=== PATIENT | female | born 1935 | race Caucasian/White ===

== ENCOUNTER 2016-10-31 11:45 | Emergency (ER) | payer MEDICARE, OTHER ==
[~2016-10-31] VITALS: Ht 152.4 cm; Wt 72.0 kg
[~2016-10-31 11:45] MED LIST: CLIN1CAP6 PO; FURO1TAB93 PO; KLOR8TAB PO; LORT5TAB PO; OS-CTAB3 PO; TAB-TAB PO; TYLE3 PO
[2016-10-31 11:47] VITALS: BP 145/94; PULSE 95; RESP 17; TEMP 97.8; O2SAT 95
--- NOTE | 2016-10-31 12:06 | PD ---
Physical Exam Date Seen by Provider: Oct 31, 2016 Time Seen by Provider: 11:59 Narrative 81 y/o female patient here with 1 week history of lower abdominal and lower back pain. patient denies fever, nausea, or vomiting. Patient was constipated , but has been taking Senokot with good results. No history diverticulitis. V/S stable. Patient awaiting bed placement. Data Data Last Documented VS Vital Signs Date Time Temp Pulse Resp B/P Pulse Ox O2 Delivery O2 Flow Rate FiO2 10/31/16 11:47 97.8 95 17 145/94 95 MDM Medical Record Reviewed: Yes Supervised Visit with ROBBIE: Yes Condition: Stable Reilly Garland Oct 31, 2016 12:06
[2016-10-31] MEDS ORDERED: ONDANSETRON HCL 4 MG/2 ML VIAL IM ONE (13:45)
[2016-10-31] MEDS ORDERED: MORPHINE SULFATE 4 MG/ML INJ IM ONE (13:45)
--- NOTE | 2016-10-31 13:50 | PD ---
HPI Chief Complaint: Abdominal Pain Time Seen by Provider: 13:13 Travel History International Travel<30 days: No Contact w/Intl Traveler<30days: No Traveled to known affect area: No History of Present Illness HPI This patient complains of back pain. Duration is one week. Severity is moderate. It basically flares whenever she moves. If she tries to sit up or twist her torso she gets a lot of pain. It's in the low midline back. It does not radiate down her legs. She is not having vomiting or diarrhea or fever. She is eating well. No presyncopal symptoms. She saw her primary physician for this a few days ago, Dr. Harris. [facility] Past Medical History Diabetes: No Hepatitis: No Hiatal Hernia: No Past Surgical History Abdominal Surgery: Yes (CHOLECYSTECTOMY) Cardiac Surgery: No Endocrine Surgery: No Eye Surgery: Yes (CATARCT BILATERAL WITH LENS REPLACEMENT) Pacemaker: No Thoracic Surgery: No Social History Alcohol Use: No Tobacco Use: No Substance Use: No Allergies-Medications (Allergen,Severity, Reaction): Coded Allergies: Actonel (Unverified Allergy, Severe, Rash, 10/31/16) Keflex (Unverified Allergy, Mild, EYES NOT OPENING, 10/31/16) Reported Meds & Prescriptions Reported Meds & Active Scripts Active Lortab 5/500 (Acetaminophen/Hydrocodone Bitart) 5 Mg/500 Mg Tab 1 Tab PO Q6HPRN FOR PAIN Reported Clindamycin Hcl (Clindamycin HCl) 300 Mg Cap 300 Mg PO DAILY Tylenol #3 (Acetaminophen/Codeine Phosphate) 300 Mg/30 Mg Tab 1 Tab PO Q4-6HPRN FOR PAIN Klor-Con 8 (Potassium Chloride) 8 Meq Tab 8 Meq PO 3XWEEKLY Multivitamin (Multivitamins) 1 Tab Tab 1 Tab PO WEEKLY Lasix (Furosemide) 40 Mg Tab 40 Mg PO BID Calcium 500/Vitamin D (Calcium/Vitamin D) Tab 600 Mg PO DAILY Review of Systems General / Constitutional: No: Fever Eyes: No: Visual changes HENT: No: Headaches Cardiovascular: No: Chest Pain or Discomfort Respiratory: No: Shortness of Breath Gastrointestinal: Positive: Abdominal Pain, No: Vomiting Genitourinary: No: Dysuria Musculoskeletal: Positive: Pain Skin: No Rash Neurologic: No: Weakness Psychiatric: No: Depression Endocrine: No: Polydipsia Hematologic/Lymphatic: No: Easy Bruising Physical Exam Narrative GENERAL: Well-nourished, well-developed patient in no apparent distress. SKIN: Focused skin assessment reveals no rash and nodules. Skin is Warm and dry. HEAD: Atraumatic. Normocephalic. EYES: Pupils equal and round. No scleral icterus. No injection or drainage. ENT: No nasal bleeding or discharge. Mucous membranes pink and moist. NECK: Trachea midline. No JVD. CARDIOVASCULAR: Regular rate and rhythm. No murmur appreciated. RESPIRATORY: No accessory muscle use. Clear to auscultation. Breath sounds equal bilaterally. GASTROINTESTINAL: Abdomen soft, non-tender, nondistended. Hepatic and splenic margins not palpable. MUSCULOSKELETAL: No obvious deformities. No clubbing. No cyanosis. No edema. Examination the back reveals no midline tenderness. No bruising or swelling or muscle spasm. Straight leg raise and cross straight leg raises are negative NEUROLOGICAL: Awake and alert. No obvious cranial nerve deficits. Motor grossly within normal limits. Normal speech. PSYCHIATRIC: Appropriate mood and affect; insight and judgment normal. Data Data Last Documented VS Vital Signs Date Time Temp Pulse Resp B/P Pulse Ox O2 Delivery O2 Flow Rate FiO2 10/31/16 11:47 97.8 95 17 145/94 95 Orders Morphine Inj (Morphine Inj) (10/31/16 13:45) Ondansetron Inj (Zofran Inj) (10/31/16 13:45) MDM Medical Decision Making Medical Screen Exam Complete: Yes Emergency Medical Condition: Yes Medical Record Reviewed: Yes Differential Diagnosis Compression fracture, disc herniation, sciatica, AAA Narrative Course I have reviewed the patient's electronic medical record. I called and spoke with Dr. Harris. We discussed her case in detail. He did an abdominal ultrasound which revealed no evidence of AAA. There was some calcifications in the aorta. He did a x-ray of the lumbosacral spine.. No compression fractures. Patient is neurologically intact. She does not have sciatic radiation. Her low back pain clearly seems musculoskeletal. It is clearly flared and aggravated when she tries to sit up or roll over or move her back. She has a soft benign nontender abdomen. I don't feel that the cause of her back pain is abdominal in nature I'm giving her morphine and Zofran injection now for symptom relief. I wrote her some Percocets. Dr. Harris will see her tomorrow in his office and will consider doing an outpatient MRI of the lumbosacral spine. He has already referred her to orthopedics. Diagnosis Primary Impression: Back pain at L4-L5 level Additional Instructions: The patient was warned about potential sedation for the medications they will receive on prescription. Call primary physician tomorrow morning for follow-up, he will see her tomorrow Med/Other Pt SpecificInfo: Prescription(s) given Disposition: 01 DISCHARGE HOME Condition: Stable Bony Dunn MD Oct 31, 2016 13:50
[2016-10-31] MEDS ORDERED: PERC5TAB12 PO (14:33)
[2016-10-31 14:51] VITALS: RESP 14
[2016-10-31 14:54] VITALS: BP 135/70
== END 2016-10-31 15:05 | disposition home or self-care (01) ==
LOC: NEPC 11:45
DX: M54.5 Low back pain (principal)
CPT/HCPCS: 96372; 99283; J2270; J2405

== ENCOUNTER 2016-11-18 11:59 | Inpatient (IN) | payer OTHER, MEDICARE ==
[~2016-11-18] VITALS: Ht 152.4 cm; Wt 67.9 kg
[~2016-11-18 11:59] MED LIST changes: +PERC5TAB12 PO
[2016-11-18 12:04] VITALS: BP 154/86; PULSE 92; RESP 18; TEMP 98.6; O2SAT 96
--- NOTE | 2016-11-18 12:08 | PD ---
Physical Exam Time Seen by Provider: 12:05 Narrative 81yo F c/o low back pain and lower abdominal pain x1 month. Denies Injury. Ovidio fever, vomiting, diarrhea. Patient seen in triage. Awaiting bed placement. VS reviewed. Data Data Last Documented VS Vital Signs Date Time Temp Pulse Resp B/P Pulse Ox O2 Delivery O2 Flow Rate FiO2 11/18/16 12:04 98.6 92 18 154/86 96 MDM Supervised Visit with ROBBIE: Laney Dillon November 18, 2016 12:08
[2016-11-18] MEDS ORDERED: FURO1TAB60 PO (12:45)
[2016-11-18] MEDS ORDERED: KLOR8TAB PO (12:45)
--- NOTE | 2016-11-18 13:08 | PD ---
HPI Chief Complaint: Abdominal Pain Time Seen by Provider: 12:42 Travel History International Travel<30 days: No Contact w/Intl Traveler<30days: No Traveled to known affect area: No History of Present Illness HPI This patient has history of chronic low back pain and chronic left lower quadrant pain. She's had each of these problems for one to 2 months. She's had fairly extensive workup including abdominal ultrasound and MRI of her back and plain films. She is seen orthopedic follow-up as well as her regular doctor for this multiple times. She received a call today from orthopedist Dr. Horton who according to the patient told her to go to the emergency room. The patient really doesn't know why she was sent here and she says she didn't ask him. Pain is chronic and not unchanged today. No acute injury. No new neurologic deficit. I placed a call to Dr. Horton to discuss. I suspect it may have to do with her recent outpatient MRI. Severity is moderate. Duration 1-2 months. No alleviating factors PFSH Past Medical History Cardiovascular Problems: Yes (MITRAL VALVE) Diabetes: No Hepatitis: No Hiatal Hernia: No Hypertension: Yes Medical other: No Respiratory: No ?: Not Past Surgical History Abdominal Surgery: Yes (CHOLECYSTECTOMY) Cardiac Surgery: No Endocrine Surgery: No Eye Surgery: Yes (CATARCT BILATERAL WITH LENS REPLACEMENT) Neurologic Surgery: No Pacemaker: No Thoracic Surgery: No Other Surgery: Yes Social History Alcohol Use: No Tobacco Use: No (quit 30 years ago) Substance Use: No Allergies-Medications (Allergen,Severity, Reaction): Coded Allergies: Actonel (Verified Allergy, Severe, Rash, 10/31/16) Keflex (Verified Allergy, Mild, EYES NOT OPENING, 10/31/16) Reported Meds & Prescriptions Reported Meds & Active Scripts Active Percocet (Oxycodone-Acetaminophen) 5-325 mg Tab 1 Tab PO Q6H PRN Reported Lasix (Furosemide) 40 Mg Tab 40 Mg PO DAILY Klor-Con 8 (Potassium Chloride) 8 Meq Tab 8 Meq PO DAILY Review of Systems General / Constitutional: No: Fever Eyes: No: Visual changes HENT: No: Headaches Cardiovascular: No: Chest Pain or Discomfort Respiratory: No: Shortness of Breath Gastrointestinal: Positive: Abdominal Pain Genitourinary: No: Dysuria Musculoskeletal: Positive: Pain Skin: No Rash Neurologic: No: Weakness Psychiatric: No: Depression Endocrine: No: Polydipsia Hematologic/Lymphatic: No: Easy Bruising Physical Exam Narrative GENERAL: Elderly well-developed patient in no apparent distress. SKIN: Focused skin assessment reveals no rash and nodules. Skin is Warm and dry. HEAD: Atraumatic. Normocephalic. EYES: Pupils equal and round. No scleral icterus. No injection or drainage. ENT: No nasal bleeding or discharge. Mucous membranes pink and moist. NECK: Trachea midline. No JVD. CARDIOVASCULAR: Regular rate and rhythm. No murmur appreciated. RESPIRATORY: No accessory muscle use. Clear to auscultation. Breath sounds equal bilaterally. GASTROINTESTINAL: Abdomen soft, nontender without rebound or guarding, nondistended. Hepatic and splenic margins not palpable. MUSCULOSKELETAL: No obvious deformities. No clubbing. No cyanosis. No edema. NEUROLOGICAL: Awake and alert. No obvious cranial nerve deficits. Motor grossly within normal limits. Normal speech. PSYCHIATRIC: Appropriate mood and affect; insight and judgment normal. Data Data Last Documented VS Vital Signs Date Time Temp Pulse Resp B/P Pulse Ox O2 Delivery O2 Flow Rate FiO2 11/18/16 12:25 18 11/18/16 12:04 98.6 92 154/86 96 Orders Iv Access Insert/Monitor (11/18/16 13:36) Complete Blood Count With Diff (11/18/16 13:36) Basic Metabolic Panel (Bmp) (11/18/16 13:36) Prothrombin Time / Inr (Pt) (11/18/16 13:36) Act Partial Throm Time (Ptt) (11/18/16 13:36) C-Reactive Protein (Crp) (11/18/16 13:44) Westergren Sedimentation Rate (11/18/16 13:44) Ct Guided Aspiration (11/18/16 ) Labs Laboratory Tests Test 11/18/16 11/18/16 13:40 13:46 White Blood Count 6.5 TH/MM3 Red Blood Count 4.28 MIL/MM3 Hemoglobin 11.8 GM/DL Hematocrit 36.4 % Mean Corpuscular Volume 85.2 FL Mean Corpuscular Hemoglobin 27.5 PG Mean Corpuscular Hemoglobin 32.3 % Concent Red Cell Distribution Width 15.3 % Platelet Count 222 TH/MM3 Mean Platelet Volume 7.9 FL Neutrophils (%) (Auto) 73.0 % Lymphocytes (%) (Auto) 18.2 % Monocytes (%) (Auto) 6.2 % Eosinophils (%) (Auto) 1.8 % Basophils (%) (Auto) 0.8 % Neutrophils # (Auto) 4.8 TH/MM3 Lymphocytes # (Auto) 1.2 TH/MM3 Monocytes # (Auto) 0.4 TH/MM3 Eosinophils # (Auto) 0.1 TH/MM3 Basophils # (Auto) 0.0 TH/MM3 CBC Comment DIFF FINAL Differential Comment Sodium Level 140 MEQ/L Potassium Level 4.2 MEQ/L Chloride Level 105 MEQ/L Carbon Dioxide Level 26.8 MEQ/L Anion Gap 8 MEQ/L Blood Urea Nitrogen 15 MG/DL Creatinine 0.67 MG/DL Estimat Glomerular Filtration 84 ML/MIN Rate Random Glucose 93 MG/DL Calcium Level 9.6 MG/DL Prothrombin Time 11.1 SEC Prothromb Time International 1.0 RATIO Ratio Activated Partial 26.1 SEC Thromboplast Time MDM Medical Decision Making Medical Screen Exam Complete: Yes Emergency Medical Condition: Yes Medical Record Reviewed: Yes Differential Diagnosis Sciatica, disc herniation, chronic pain Narrative Course I have reviewed the patient's electronic medical record. Reviewed her visit from October 2016 when I saw this patient for the exact same thing I'm awaiting a callback from Dr. Horton. He advised this patient to come here. I discussed the case in detail with Dr. Horton. He did an outpatient MRI which has revealed suspicion of discitis. He discussed with neurosurgeon Dr. Judge who has reviewed the MRI. They're recommending admission and Dr. Judge is arranging a CT-guided aspiration of the disc in question. I spoke with Dr. Judge as well. He recommends holding off on antibiotics but recommends that hospitalist consult ID as well as himself. CBC is normal Metabolic profile is normal CRP and sedimentation rate are pending Patient will be admitted for discitis with CT-guided biopsy soon to be followed by antibiotics. Diagnosis Primary Impression: Discitis of lumbar region Admitting Information Admitting Physician Requests: Admit Bony Dunn MD November 18, 2016 13:08
--- NOTE | 2016-11-18 13:55 | PD.CONS ---
[facility] Service Neurosurgery Consult Requested By Dr Sanchez Reason for Consult Discitis at L3-L4 Primary Care Physician Roseanna Harris MD History of Present Illness This is a 81 y/o Female with chronic low back pain and chronic left lower quadrant pain. Apparently her pain has been getting worse for the past two months, She's had fairly extensive workup including abdominal ultrasound and MRI of her back and plain films. She was sent to [place] emergency department by her orthopedic surgeon after an MRI which reported evidence of discitis at L3-L4 . Her pain is very severe and aggravated by any movement she denies any gurjit focal weakness. No acute injury. No falls she denies any incontinence of stool or urine or gurjit sensory loss. She has suffer a recent urinary tract infection. She has history of Mitral valve disease. An outpatient MRI has been obtained. Neurosurgical consultation was requested Review of Systems Constitutional: DENIES: Diaphoretic episodes, Fatigue, Fever, Weight gain, Weight loss, Chills, Dizziness, Change in appetite, Night Sweats Endocrine: DENIES: Abnorml menstrual pattern, Heat/cold intolerance, Polydipsia , Polyuria, Polyphagia Eyes: COMPLAINS OF: Eye inflammation, DENIES: Blurred vision, Diplopia, Eye pain, Vision loss, Photosensitivity, Double Vision Ears, nose, mouth, throat: DENIES: Tinnitus, Hearing loss, Vertigo, Nasal discharge, Oral lesions, Throat pain, Hoarseness, Ear Pain, Running Nose, Epistaxis, Sinus Pain, Toothache, Odynophagia Respiratory: DENIES: Apneas, Cough, Snoring, Wheezing, Hemoptysis, Sputum production, Shortness of breath Cardiovascular: DENIES: Chest pain, Palpitations, Syncope, Dyspnea on Exertion , PND, Lower Extremity Edema, Orthopnea, Claudication Gastrointestinal: DENIES: Abdominal pain, Black stools, Bloody stools, Constipation, Diarrhea, Nausea, Vomiting, Difficulty Swallowing, Anorexia Genitourinary: DENIES: Abnormal vaginal bleeding, Dysmenorrhea, Dyspareunia, Sexual dysfunction, Urinary frequency, Urinary incontinence, Urgency, Hematuria , Dysuria, Nocturia, Vaginal discharge Musculoskeletal: COMPLAINS OF: Joint pain, Back pain Integumentary: DENIES: Abnormal pigmentation, Pruritus, Rash, Nail changes, Breast masses, Breast skin changes, Nipple discharge Hematologic/lymphatic: DENIES: Bruising, Lymphadenopathy Immunologic/allergic: DENIES: Eczema, Urticaria Neurologic: COMPLAINS OF: Abnormal gait, DENIES: Headache, Localized weakness , Paresthesias, Seizures, Speech Problems, Tremor, Poor Balance Psychiatric: DENIES: Anxiety, Confusion, Mood changes, Depression, Hallucinations, Agitation, Suicidal Ideation, Homicidal Ideation, Delusions Past Family Social History Allergies: Coded Allergies: Actonel (Verified Allergy, Severe, Rash, 10/31/16) Keflex (Verified Allergy, Mild, EYES NOT OPENING, 10/31/16) Past Medical History Mitral Valve disease Urinary tract infection Hypertension Possible dementia Past Surgical History Cholecystectomy Cataract bilateral with lens replacement Reported Medications Percocet (Oxycodone-Acetaminophen) 5-325 mg Tab 1 Tab PO Q6H PRN Lasix (Furosemide) 40 Mg Tab 40 Mg PO DAILY Klor-Con 8 (Potassium Chloride) 8 Meq Tab 8 Meq PO DAILY Active Ordered Medications Current Medications Furosemide (Lasix) 40 mg DAILY PO ; Start 11/19/16 at 09:00 Potassium Chloride 8 meq 8 meq DAILY PO ; Start 11/19/16 at 09:00 Sodium Chloride (NS 1000 ml Inj) 1,000 ml @ 100 mls/hr Q10H IV Last administered on 11/18/16t 15:00; Start 11/18/16 at 15:00 Sodium Chloride (NS Flush) 2 ml UNSCH PRN IV FLUSH FLUSH AFTER USING IV ACCESS ; Start 11/18/16 at 15:00 Sodium Chloride (NS Flush) 2 ml BID IV FLUSH ; Start 11/18/16 at 21:00 Acetaminophen (Tylenol) 650 mg Q4H PRN PO TEMP > 100.4; Start 11/18/16 at 15:00 Ondansetron HCl (Zofran Inj) 4 mg Q6H PRN IVP NAUSEA OR VOMITING; Start at 15:00 Bisacodyl (Dulcolax Supp) 10 mg DAILY PRN RECTAL CONSTIPATION; Start 11/18/16 at 15:00 Docusate Sodium (Colace) 100 mg Q12HR PO ; Start 11/18/16 at 15:00 Naloxone HCl (Narcan Inj) 0.4 mg UNSCH PRN IV SEE LABEL COMMENTS; Start at 15:00 Family History Noncontributory Social History She is not a smoker. Denies alcohol abuse. Denies illicit drug use Physical Exam Vital Signs Vital Signs Date Time Temp Pulse Resp B/P Pulse Ox O2 Delivery O2 Flow Rate FiO2 11/18/16 12:25 18 11/18/16 12:04 98.6 92 18 154/86 96 Physical Exam The patient is alert, awake and oriented to time, place and person. Speech is fluent. Cranial nerve examination demonstrates the pupils to be equal, round, and reactive to light. Extra-ocular movements are intact. Facial motor and sensory function are normal and symmetrical. Gross hearing is decreased bilaterally. The uvula is midline and elevates symmetrically with the soft palate. Sternocleidomastoid and trapezius muscles have normal and symmetrical strength. Other cranial nerves are intact. Neck is soft and supple. Cervical spine has a decreased range of motion in anterior flexion, extension, lateral bending, and rotation without pain. There is no tenderness to palpation to the spinous processes or paraspinal muscles. Muscle testing reveals normal bulk and tone overall without rigidity, spasticity , fasciculations, or atrophy. Muscle strength is 5/5 in all muscle groups of both upper extremities including deltoid, biceps, triceps, brachioradialis, wrist extension and sugar boiler. In the lower extremities, strength is limited due to give away in her lower extremities secondary to pain. Strenght 4+/5 in both iliopsoas, quadriceps, hamstrings, plantar flexion, dorsiflexion, and extensor hallicus longus. Sensory examination is intact to light touch and sharp/dull discrimination in both the upper and lower extremities, symmetrically. Deep tendon reflexes are 2+ and symmetrical in the biceps, triceps, and brachioradialis, bilaterally, in the upper extremities. In the lower extremities , the patellar and Achilles are 2+, bilaterally. There is a bilateral plantar flexion response. Hoffmanns sign is negative. There is no clonus or other abnormal reflexes noted. Cerebellar examination is intact to [id number] test, rapid rhythmic alternating motion. There is no dysmetria, dysdiadochokinesia, truncal ataxia, or tremor. Attending Statement Neuro. I have reviewed her clinical and radiological findings. Start neuro checks in a serial fashion. SHe has radiological evidence of discitis. Recommend send ESR, CRB, and a CT guided biopsy of the disc space for cultures. Once that the cultures had been obtained start intravenous wide spectrum antibiotics She has severe lumbar spinal stenosis and she may need surgical decompression electively, in the future if any infection is ruled out PT and OT evaluation Nutrition. NPO for procedure. Start diet following the biopsy Renal. monitor closely urine output, BUN and creatinine Endocrine. Monitor serial Acu checks and SSI as needed in detail ID monitor for signs of infection Protonix for stress ulcer prophylaxis Markel malave and SCD's for DVT prophylaxis Jairon Judge MD November 18, 2016 13:54
[2016-11-18 13:57] LABS: AUTOMATED NEUTROPHIL # 4.8 TH/MM3 (1.8-7.7); BASOPHIL % 0.8 % (0.0-2.0); EOSINOPHIL # 0.1 TH/MM3 (0-0.4); EOSINOPHIL % 1.8 % (0.0-4.0); HEMATOCRIT 36.4 % (35.0-46.0); HEMO FLAGS DIFF FINAL; LYMPH % 18.2 % (9.0-44.0); LYMPHOCYTE # 1.2 TH/MM3 (1.0-4.8); MEAN CELL VOLUME 85.2 FL (80.0-100.0); MEAN CORPUSCULAR HEMOGLOBIN 27.5 PG (27.0-34.0); MEAN CORPUSCULAR HGB CONC 32.3 % (32.0-36.0); MONO % 6.2 % (0.0-8.0); PLATELET COUNT 222 TH/MM3 (150-450); RED BLOOD COUNT 4.28 MIL/MM3 (4.00-5.30); RED CELL DISTRIBUTION WIDTH 15.3 % (11.6-17.2); WHITE BLOOD COUNT 6.5 TH/MM3 (4.0-11.0)
[2016-11-18 14:12] LABS: APTT (PATIENT) 26.1 SEC (24.3-30.1); PROTHROMBIN TIME - PATIENT 11.1 SEC (9.8-11.6)
[2016-11-18 14:15] LABS: BICARBONATE 26.8 MEQ/L (21.0-32.0)
[2016-11-18 14:17] LABS: POTASSIUM 4.2 MEQ/L (3.5-5.1)
--- NOTE | 2016-11-18 14:58 | HHI.HP ---
[facility] Roseanna Harris MD Admission Diagnosis diskitis of L3 Diagnoses: Chief Complaint: Sent by Orthopedic Surgery for Neurosurgery evaluation. Travel History International Travel<30 Days: No Contact w/Intl Traveler <30 Da: No Traveled to Known Affected Are: No History of Present Illness This is a pleasant 81 y/o Female with chronic low back pain and chronic left lower quadrant pain, for one to two months, She's had fairly extensive workup including abdominal ultrasound and MRI of her back and plain films. She is seen orthopedic follow-up as well as her regular doctor for this multiple times. She received a call today from orthopedist Dr. Horton who according to the patient told her to go to the emergency room. The patient really doesn't know why she was sent here and she says she didn't ask him. Pain is chronic and not unchanged today. No acute injury. No new neurologic deficit. after contacted Doctor Sol she was sent To ER due to findings in new MRI of the spine. as we know she has Hypertension will continue Home medicines. Past Family Social History Past Medical History Hypertension Past Surgical History Cholecystectomy Cataract bilateral with lens replacement Bilateral Bunionectomy Right Hip Arthroplasty Bilateral Knee arthroplasty Reported Medications Reported Meds & Active Scripts Active Percocet (Oxycodone-Acetaminophen) 5-325 mg Tab 1 Tab PO Q6H PRN Reported Lasix (Furosemide) 40 Mg Tab 40 Mg PO DAILY Klor-Con 8 (Potassium Chloride) 8 Meq Tab 8 Meq PO DAILY Allergies: Coded Allergies: Actonel (Verified Allergy, Severe, Rash, 10/31/16) Keflex (Verified Allergy, Mild, EYES NOT OPENING, 10/31/16) Active Ordered Medications Current Medications Medications (Trade) Dose Ordered Sig/Fabby Route Start Time Stop Time Status Last Admin (Lasix) 40 mg DAILY PO 11/19/16 09:00 Potassium Chloride 8 meq 8 meq DAILY PO 11/19/16 09:00 (NS 1000 ml Inj) 1,000 ml @ 100 mls/hr Q10H IV 11/18/16 15:00 11/18/16 15:00 (NS Flush) 2 ml UNSCH PRN IV FLUSH 11/18/16 15:00 (NS Flush) 2 ml BID IV FLUSH 11/18/16 21:00 (Tylenol) 650 mg Q4H PRN PO 11/18/16 15:00 (Zofran Inj) 4 mg Q6H PRN IVP 11/18/16 15:00 (Dulcolax Supp) 10 mg DAILY PRN RECTAL 11/18/16 15:00 (Colace) 100 mg Q12HR PO 11/18/16 15:00 (Narcan Inj) 0.4 mg UNSCH PRN IV 11/18/16 15:00 Family History Mother with CHF at 48 y/a Social History Lives with her and one kid. denies any toxic habits. Physical Exam Vital Signs Vital Signs Date Time Temp Pulse Resp B/P Pulse Ox O2 Delivery O2 Flow Rate FiO2 11/18/16 12:25 18 11/18/16 12:04 98.6 92 18 154/86 96 Physical Exam GENERAL: Elderly well-developed patient in no apparent distress. SKIN: Focused skin assessment reveals no rash and nodules. Skin is Warm and dry. HEAD: Atraumatic. Normocephalic. EYES: Pupils equal and round. No scleral icterus. No injection or drainage. ENT: No nasal bleeding or discharge. Mucous membranes pink and moist. NECK: Trachea midline. No JVD. CARDIOVASCULAR: Regular rate and rhythm. No murmur appreciated. RESPIRATORY: No accessory muscle use. Clear to auscultation. Breath sounds equal bilaterally. GASTROINTESTINAL: Abdomen soft, nontender without rebound or guarding, nondistended. Hepatic and splenic margins not palpable. MUSCULOSKELETAL: No clubbing, cyanosis or edema, has malformation of left hand. NEUROLOGICAL: Awake and alert. No obvious cranial nerve deficits. Motor grossly within normal limits. Normal speech. PSYCHIATRIC: Appropriate mood and affect; insight and judgment normal. Laboratory Laboratory Tests Test 11/18/16 11/18/16 13:40 13:46 White Blood Count 6.5 Red Blood Count 4.28 Hemoglobin 11.8 Hematocrit 36.4 Mean Corpuscular Volume 85.2 Mean Corpuscular Hemoglobin 27.5 Mean Corpuscular Hemoglobin 32.3 Concent Red Cell Distribution Width 15.3 Platelet Count 222 Mean Platelet Volume 7.9 Neutrophils (%) (Auto) 73.0 Lymphocytes (%) (Auto) 18.2 Monocytes (%) (Auto) 6.2 Eosinophils (%) (Auto) 1.8 Basophils (%) (Auto) 0.8 Neutrophils # (Auto) 4.8 Lymphocytes # (Auto) 1.2 Monocytes # (Auto) 0.4 Eosinophils # (Auto) 0.1 Basophils # (Auto) 0.0 CBC Comment DIFF FINAL Differential Comment Sodium Level 140 Potassium Level 4.2 Chloride Level 105 Carbon Dioxide Level 26.8 Anion Gap 8 Blood Urea Nitrogen 15 Creatinine 0.67 Estimat Glomerular Filtration 84 Rate Random Glucose 93 Calcium Level 9.6 Prothrombin Time 11.1 Prothromb Time International 1.0 Ratio Activated Partial 26.1 Thromboplast Time Result Diagram: 11/18/16 1340 11/18/16 1340 Assessment and Plan Assessment and Plan Sent to ER by Orthopedic hydramatic specialist Doctor Sol who performed a MRI and found suspicious for discitis, was discussed then with Neurosurgery specialist Doctor Jairon Judge and recommended for CT guided aspiration of the disc in question, recommended to hold antibiotics and consult ID specialist. 1. Discitis for spine biopsy and follow by Neurosurgery and ID specialist 2. Hypertension continue Home medicines DVT prophylaxis SCDs for procedure later today or in am tomorrow. Discussed with ER physician Doctor Bony Dunn Code Status Full code Discussed Condition With Patient and ER specialist. Physician Certification 2 Midnight Certification Type: Admission for Inpatient Services Order for Inpatient Services The services are ordered in accordance with Medicare regulations or non- Medicare payer requirements, as applicable. In the case of services not specified as inpatient-only, they are appropriately provided as inpatient services in accordance with the 2-midnight benchmark. Estimated LOS (days): 3 days is the estimated time the patient will need to remain in the hospital, assuming treatment plan goals are met and no additional complications. Post-Hospital Plan: Not yet determined Lalo Stuart MD November 18, 2016 14:58
[2016-11-18] MEDS ORDERED: ACETAMINOPHEN 325 MG TAB PO PRN (15:00)
[2016-11-18] MEDS ORDERED: SODIUM CHLORIDE 0.9% FLUSH 10 ML FLUSH IV FLUSH PRN (15:00)
[2016-11-18] MEDS ORDERED: BISACODYL 10 MG SUPP RECTAL PRN (15:00)
[2016-11-18] MEDS: SODIUM CHLOR 0.9% 1000 ML INJ 1,000 ML IV SCH ×2 (15:00→21:15)
[2016-11-18] MEDS: DOCUSATE SODIUM 100 MG CAP PO SCH ×2 (15:00→21:15)
[2016-11-18] MEDS ORDERED: ONDANSETRON HCL 4 MG/2 ML VIAL IVP PRN (15:00)
[2016-11-18] MEDS ORDERED: NALOXONE HCL 0.4 MG/ML AMP IV PRN (15:00)
[2016-11-18 15:06] VITALS: BP 161/75; PULSE 75; RESP 18; O2SAT 97
--- NOTE | 2016-11-18 16:32 | HHI.IDPN ---
Note Infectious Disease Note Patient seen and examined. Full consult dictated. Patient with back pain and probable discitis. Recommend: Monitor culture after disc space biopsy and monitor blood cultures. Patient is clinically not toxic and I see no urgency to start antibiotics. I will follow the cultures. Vital Signs Date Time Temp Pulse Resp B/P Pulse Ox O2 Delivery O2 Flow Rate FiO2 11/18/16 15:06 75 18 161/75 97 Room Air 11/18/16 12:25 18 11/18/16 12:04 98.6 92 18 154/86 96 Laboratory Tests Test 11/18/16 11/18/16 13:40 13:46 White Blood Count 6.5 TH/MM3 Red Blood Count 4.28 MIL/MM3 Hemoglobin 11.8 GM/DL Hematocrit 36.4 % Mean Corpuscular Volume 85.2 FL Mean Corpuscular Hemoglobin 27.5 PG Mean Corpuscular Hemoglobin 32.3 % Concent Red Cell Distribution Width 15.3 % Platelet Count 222 TH/MM3 Mean Platelet Volume 7.9 FL Neutrophils (%) (Auto) 73.0 % Lymphocytes (%) (Auto) 18.2 % Monocytes (%) (Auto) 6.2 % Eosinophils (%) (Auto) 1.8 % Basophils (%) (Auto) 0.8 % Neutrophils # (Auto) 4.8 TH/MM3 Lymphocytes # (Auto) 1.2 TH/MM3 Monocytes # (Auto) 0.4 TH/MM3 Eosinophils # (Auto) 0.1 TH/MM3 Basophils # (Auto) 0.0 TH/MM3 CBC Comment DIFF FINAL Differential Comment Erythrocyte Sedimentation Rate 20 mm/hr Sodium Level 140 MEQ/L Potassium Level 4.2 MEQ/L Chloride Level 105 MEQ/L Carbon Dioxide Level 26.8 MEQ/L Anion Gap 8 MEQ/L Blood Urea Nitrogen 15 MG/DL Creatinine 0.67 MG/DL Estimat Glomerular Filtration 84 ML/MIN Rate Random Glucose 93 MG/DL Calcium Level 9.6 MG/DL Prothrombin Time 11.1 SEC Prothromb Time International 1.0 RATIO Ratio Activated Partial 26.1 SEC Thromboplast Time Brian Moser MD November 18, 2016 16:32
[2016-11-18 16:34] LABS: BACTERIA, URINE OCC /hpf; BLOOD, URINE NEG (NEG); GLUCOSE,URINE NEG (NEG); KETONE, URINE 10 mg/dL (NEG); MUCUS URINE FEW /lpf (OCC); NITRITE,URINE NEG (NEG); PH, URINE 7.5 (5.0-8.5); SQUAMOUS EPITHELIAL CELL URINE <1 /hpf (0-5); URINE COLOR LIGHT-YELLOW (YELLW/STRAW)
[2016-11-18 16:35] LABS: COMMENT (UR) CULT NOT INDICATED; CULTURE IF INDICATED CULT NOT INDICATED
[2016-11-18 17:32] VITALS: BP 153/101; PULSE 80; RESP 19; TEMP 97.5; O2SAT 95
--- NOTE | 2016-11-18 17:46 | MB ---
cc: JOSEPH MOSER MD DATE OF CONSULTATION 11/18/[address] Booker REASON FOR CONSULTATION Diskitis. HISTORY OF PRESENT ILLNESS This is an 81-year-old white male who was sent to the emergency for evaluation of abnormal MRI. The patient has had back pain since 2016. The pain became intense to the point where she got a wheelchair and was using the wheelchair to get around. She noted that the pain was 8/10 at the worst. She has been using Percocet four times a day to control the pain. She was evaluated by orthopedic specialty outpatient and an MRI was done and it showed changes in the spine suggestive of infection. The MRI result is not available to me at this time. However, the patient was sent to the emergency department for evaluation and is due to undergo a biopsy of the spine. Her main complaint is pain. She denies fever. She states that she may have had slight chills. She denies nausea, vomiting or other symptoms. Her sedimentation rate is 20. The white blood cell count is 6.5. Vital signs reveal normal temperature. She denies problems with bladder or bowel control. PAST MEDICAL HISTORY 1. Mitral valve disease 2. Hypertension. 3. Cholecystectomy, 4. Cataract surgery bilateral 5. Right hip replacement, 6. Bilateral knee replacements. ALLERGIES KEFLEX - CAUSED DIFFICULTY WITH VISION. ACTONEL MEDICATIONS 1. Lasix. 2. Potassium. 3. Colace. SOCIAL HISTORY Again. No tobacco use. Occasional alcohol. No illicit drugs. FAMILY HISTORY Noncontributory. REVIEW OF SYSTEMS Significant for pain in the back and joint pains. Otherwise, negative on 10-point review. PHYSICAL EXAMINATION GENERAL: This is a slender female who is in acute distress. She is awake and alert and oriented. VITAL SIGNS: Temperature 98.6, BP 161/75, respirations 18, heart rate 75. HEENT: The head is atraumatic. Extraocular movements grossly intact. Pupils reactive to light. No icterus. Oropharynx moist mucosa. No visible lesions. NECK: Supple. No adenopathy. No swelling. LUNGS: Clear to auscultation. HEART: Regular S1 and S2. No murmurs. No rubs. No gallops. ABDOMEN: Bowel sounds diminished, soft, nontender. No palpable masses. Right lower back without tenderness on palpation. No areas of swelling. RECTAL: Not performed. EXTREMITIES: No clubbing or cyanosis or edema. 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 Resection of the second toe on the right foot from deformities which the patient attributes to wearing of high heel shoes. SKIN: No rash. NEUROLOGIC: No gross focal findings. PSYCHIATRIC: The patient is calm and cooperative. LABORATORY DATA WBC 6.5, 73% neutrophils, platelet count 222, hemoglobin 18, sedimentation rate 20. Creatinine 0.67, BUN 15, sodium 140. ASSESSMENT 1. Abnormal MRI indicating probable diskitis. 2. Intractable back pain. 3. Lumbar spinal stenosis per neurosurgical report. RECOMMENDATIONS 1. Obtain blood cultures as ordered. 2. Monitor urine culture 3. Agree with biopsy of the disk space involved for cultures. I think the patient is clinically stable and there is no real great urgency to start oral antibiotics and, therefore, we can await the results of the disk space biopsy and monitor her temperatures. I will monitor the patient and further recommendations will be given upon followup. Thank you for this consultation. Joseph Moser MD FD/ /4:19 PM /5:22 PM
[2016-11-18] MEDS ORDERED: MIDAZOLAM HCL 5 MG/5 ML VIAL ONE (18:58)
[2016-11-18] MEDS ORDERED: fentaNYL CITRATE 250 MCG/5 ML AMP ONE (18:59)
--- NOTE | 2016-11-18 19:27 | PD.RAD ---
Post Procedure Progress Note Pre Procedure Diagnosis: (1) Discitis of lumbar region Post Procedure Diagnosis: (1) Discitis of lumbar region Procedure Date: November 18, 2016 Supervising Radiologist: Adair Peter Proceduralist/Assist: Rubi Beverly, RT(R), Kaley Marquez RT(R)() Anesthesia: Local, Analgesia, Conscious Sedation Plan of Activity Patient to Unit: PACU Patient Condition: Good See PACS Report for procedural detail/treatment Spinal Procedure Disc Aspiration L3-L4 Fluid Removal (CCs): 3 Fluid Description: Bloody Puncture Time: 19:15 Adair Peter MD November 18, 2016 19:27
[2016-11-18 20:00] VITALS: BP_SYST 133; BP_SYST 160; BP_DIAS 78; BP_DIAS 95; PULSE 58; PULSE 64; RESP 18; TEMP 97.3; TEMP 97.8; O2SAT 100; O2SAT 96
[2016-11-18] MEDS: SODIUM CHLORIDE 0.9% FLUSH 10 ML FLUSH IV FLUSH SCH (21:00)
[2016-11-19] VITALS (7 sets, daily range): BP systolic 127–160; BP diastolic 74–80; PULSE 58–76; RESP 16–18; TEMP 97.3–98.5; O2SAT 94–100
[2016-11-19] MEDS: POTASSIUM CHLORIDE 8 MEQ CONTROLLED RELEASE TAB PO SCH (08:23)
[2016-11-19] MEDS: DOCUSATE SODIUM 100 MG CAP PO SCH ×2 (08:23→22:15)
[2016-11-19] MEDS: SODIUM CHLORIDE 0.9% FLUSH 10 ML FLUSH IV FLUSH SCH ×2 (08:24→21:00)
[2016-11-19] MEDS: FUROSEMIDE 40 MG TAB PO SCH (08:25)
--- NOTE | 2016-11-19 09:00 | HHI.PR ---
Subjective Remarks This is a pleasant 81 y/o Female with chronic low back pain and chronic left lower quadrant pain, for one to two months, She's had fairly extensive workup including abdominal ultrasound and MRI of her back and plain films. She is seen orthopedic follow-up as well as her regular doctor for this multiple times. She received a call today from orthopedist Dr. Horton who according to the patient told her to go to the emergency room. The patient really doesn't know why she was sent here and she says she didn't ask him. Pain is chronic and not unchanged today. No acute injury. No new neurologic deficit. after contacted Doctor Sol she was sent To ER due to findings in new MRI of the spine. as we know she has Hypertension will continue Home medicines. 11/19: Seen in her bedroom, will remove Solorzano cath today, no complaint by patient , no nausea, vomit or diarrhea. status post L3-L4 disc aspiration. Objective Vital Signs Date Time Temp Pulse Resp B/P Pulse Ox O2 Delivery O2 Flow Rate FiO2 11/19/16 08:00 98.5 76 17 127/78 95 11/19/16 00:00 97.3 67 18 128/74 100 11/18/16 23:42 19 11/18/16 20:30 97.7 74 19 134/95 96 Nasal Cannula 2 11/18/16 20:15 73 18 143/93 97 Nasal Cannula 2 11/18/16 20:00 97.8 64 18 133/95 100 11/18/16 19:45 97.5 75 21 147/88 96 Nasal Cannula 2 11/18/16 17:32 97.5 80 19 153/101 95 11/18/16 15:06 75 18 161/75 97 Room Air 11/18/16 12:25 18 11/18/16 12:04 98.6 92 18 154/86 96 I/O 11/18/16 11/18/16 11/18/16 11/19/16 11/19/16 11/19/16 07:00 15:00 23:00 07:00 15:00 23:00 Intake Total 1480 ml Output Total 700 ml Balance 780 ml Intake Oral 480 ml IV Total 1000 ml Output Urine Total 700 ml Result Diagram: 11/18/16 1340 11/18/16 1340 Imaging No new Imaging studies performed. Procedures Aspiration of L3-L4 Disc space Other Results Laboratory Tests Test 11/18/16 11/18/16 11/18/16 13:40 13:46 16:05 White Blood Count 6.5 TH/MM3 Red Blood Count 4.28 MIL/MM3 Hemoglobin 11.8 GM/DL Hematocrit 36.4 % Mean Corpuscular Volume 85.2 FL Mean Corpuscular Hemoglobin 27.5 PG Mean Corpuscular Hemoglobin 32.3 % Concent Red Cell Distribution Width 15.3 % Platelet Count 222 TH/MM3 Mean Platelet Volume 7.9 FL Neutrophils (%) (Auto) 73.0 % Lymphocytes (%) (Auto) 18.2 % Monocytes (%) (Auto) 6.2 % Eosinophils (%) (Auto) 1.8 % Basophils (%) (Auto) 0.8 % Neutrophils # (Auto) 4.8 TH/MM3 Lymphocytes # (Auto) 1.2 TH/MM3 Monocytes # (Auto) 0.4 TH/MM3 Eosinophils # (Auto) 0.1 TH/MM3 Basophils # (Auto) 0.0 TH/MM3 CBC Comment DIFF FINAL Differential Comment Erythrocyte Sedimentation Rate 20 mm/hr Sodium Level 140 MEQ/L Potassium Level 4.2 MEQ/L Chloride Level 105 MEQ/L Carbon Dioxide Level 26.8 MEQ/L Anion Gap 8 MEQ/L Blood Urea Nitrogen 15 MG/DL Creatinine 0.67 MG/DL Estimat Glomerular Filtration 84 ML/MIN Rate Random Glucose 93 MG/DL Calcium Level 9.6 MG/DL C-Reactive Protein 3.00 MG/DL Prothrombin Time 11.1 SEC Prothromb Time International 1.0 RATIO Ratio Activated Partial 26.1 SEC Thromboplast Time Urine Color LIGHT-YELLOW Urine Turbidity CLOUDY Urine pH 7.5 Urine Specific [place] 1.010 Urine Protein NEG mg/dL Urine Glucose (UA) NEG mg/dL Urine Ketones 10 mg/dL Urine Occult Blood NEG Urine Nitrite NEG Urine Bilirubin NEG Urine Urobilinogen LESS THAN 2.0 MG/DL Urine Leukocyte Esterase NEG Urine RBC 2 /hpf Urine Squamous Epithelial <1 /hpf Cells Urine Amorphous Sediment FEW Urine Bacteria OCC /hpf Urine Mucus FEW /lpf Microscopic Urinalysis Comment CULT NOT INDICATED Objective Remarks GENERAL: Elderly well-developed patient in no apparent distress. SKIN: Focused skin assessment reveals no rash and nodules. Skin is Warm and dry. HEAD: Atraumatic. Normocephalic. EYES: Pupils equal and round. No scleral icterus. No injection or drainage. ENT: No nasal bleeding or discharge. Mucous membranes pink and moist. NECK: Trachea midline. No JVD. CARDIOVASCULAR: Regular rate and rhythm. No murmur appreciated. RESPIRATORY: No accessory muscle use. Clear to auscultation. Breath sounds equal bilaterally. GASTROINTESTINAL: Abdomen soft, nontender without rebound or guarding, nondistended. Hepatic and splenic margins not palpable. MUSCULOSKELETAL: No clubbing, cyanosis or edema, has malformation of left hand. NEUROLOGICAL: Awake and alert. No obvious cranial nerve deficits. Motor grossly within normal limits. Normal speech. PSYCHIATRIC: Appropriate mood and affect; insight and judgment normal. Medications and IVs Current Medications Medications (Trade) Dose Ordered Sig/Fabby Route Start Time Stop Time Status Last Admin (Lasix) 40 mg DAILY PO 11/19/16 09:00 11/19/16 08:25 Potassium Chloride 8 meq 8 meq DAILY PO 11/19/16 09:00 11/19/16 08:23 (NS 1000 ml Inj) 1,000 ml @ 100 mls/hr Q10H IV 11/18/16 15:00 11/18/16 21:15 (NS Flush) 2 ml UNSCH PRN IV FLUSH 11/18/16 15:00 (NS Flush) 2 ml BID IV FLUSH 11/18/16 21:00 11/19/16 08:24 (Tylenol) 650 mg Q4H PRN PO 11/18/16 15:00 (Zofran Inj) 4 mg Q6H PRN IVP 11/18/16 15:00 (Dulcolax Supp) 10 mg DAILY PRN RECTAL 11/18/16 15:00 (Colace) 100 mg Q12HR PO 11/18/16 15:00 11/19/16 08:23 (Narcan Inj) 0.4 mg UNSCH PRN IV 11/18/16 15:00 A/P Assessment and Plan Sent to ER by Orthopedic biochemistry specialist Doctor Horton who performed a MRI and found suspicious for discitis, was discussed then with Neurosurgery specialist Doctor Jairon Judge and recommended for CT guided aspiration of the disc in question, recommended to hold antibiotics and consult ID specialist. 1. Discitis for spine biopsy and follow by Neurosurgery and ID specialist as per Doctor Moser ID specialist patient is non toxic and no need to stat antibiotics now will follow clinically and cultures. 2. Hypertension continue Home medicines DVT prophylaxis SCDs Code Status Full code Discussed Condition With Patient and nurse miss Garcia appreciated, all questions answered to the best of my abilities. Discharge Planning once cleared by specialists Lalo Stuart MD November 19, 2016 09:00
[2016-11-19 09:19] LABS: AUTOMATED NEUTROPHIL # 3.6 TH/MM3 (1.8-7.7); EOSINOPHIL # 0.1 TH/MM3 (0-0.4); EOSINOPHIL % 2.1 % (0.0-4.0); HEMATOCRIT 28.5 % (35.0-46.0); HEMO FLAGS DIFF FINAL; LYMPH % 20.4 % (9.0-44.0); LYMPHOCYTE # 1.1 TH/MM3 (1.0-4.8); MEAN CELL VOLUME 84.9 FL (80.0-100.0); MEAN CORPUSCULAR HEMOGLOBIN 27.7 PG (27.0-34.0); MEAN CORPUSCULAR HGB CONC 32.6 % (32.0-36.0); MONO % 6.4 % (0.0-8.0); NEUT % 70.1 % (16.0-70.0); PLATELET COUNT 189 TH/MM3 (150-450); RED BLOOD COUNT 3.35 MIL/MM3 (4.00-5.30); RED CELL DISTRIBUTION WIDTH 15.5 % (11.6-17.2); WHITE BLOOD COUNT 5.2 TH/MM3 (4.0-11.0)
[2016-11-19 10:10] LABS: BICARBONATE 25.3 MEQ/L (21.0-32.0); INDIRECT BILIRUBIN 0.3 MG/DL (0.0-0.8); POTASSIUM 3.4 MEQ/L (3.5-5.1); TOTAL BILIRUBIN ADULT 0.4 MG/DL (0.2-1.0)
--- NOTE | 2016-11-19 11:20 | RADRPT ---
EXAM DATE/TIME: 11/18/2016 18:22 [place] COMPARISON: No previous studies available for comparison. INDICATIONS : Patient with a history of discitis MEDICAL HISTORY : Mitral valve disease HTN SURGICAL HISTORY : Cholecystectomy Bilateral cataracts ENCOUNTER: Initial ACUITY: 3 days PAIN SCORE: 7/10 LOCATION: Lower back FLUORO TIME: 2.8 minutes IMAGE SERIES: 4 SEDATION TIME: 15 minutes MEDICATION(S): 1.) 2 mg midazolam (Versed) IV 2.) 100 mcg fentanyl (Sublimaze) IV DEVICE(S): 1.) 22 gauge spinal needle Core specimen(s) was obtained and submitted to laboratory for pathologic evaluation. TECH NOTE: L3/4 Disc KAREN Robin MR#:[id number] Exam Dt/Desc: November 18, 2016DISC ASPIRAT ION/BIOPSY PROCEDURE : 1. Fluoroscopically guided needle biopsy. 2. Conscious sedation with continuous EKG and Oximetry monitoring. The risks, benefits and alternatives to the procedure were explained and verbal and written consent w as obtained. The site was prepped in sterile fashion. Full sterile technique was used, including cap, mask, steri le gloves and gown and a large sterile sheet. Hand hygiene and 2% chlorhexidine and/or betadine/alco hol prep was utilized per protocol for cutaneous antisepsis. The skin and subcutaneous tissues were infiltrated with local anesthetic solution. With fluoroscopic guidance, the L3-4 disc was accessed with a 22 gauge, 7 inch spinal needle from the left. Needle tip was advanced to the center of the disc. Aspiration through the outer cannula produc ed approximately 3 cc of bloody material. Conscious sedation was performed with the prescribed dosages and duration as above in the presence of an independent trained radiology nurse to assist in the monitoring of the patient. EKG and oximetry remained stable throughout the procedure. CONCLUSION: Uncomplicated needle biopsy of the L3-4 disc as above. Adair Peter MD on November 19, 2016 at 11:14 Board Certified Radiologist. This report was verified electronically.
[2016-11-19] MEDS: SODIUM CHLOR 0.9% 1000 ML INJ 1,000 ML IV SCH ×2 (11:30→21:00)
--- NOTE | 2016-11-19 13:31 | HHI.NSPN ---
(Daisy Agustin) Note Status Status: Progress Note (Daisy Agustin) Interval History Interval History This is a 81 y/o female with chronic low back pain and chronic left lower quadrant pain. Apparently her pain has been getting worse for the past two months. She's had fairly extensive workup including abdominal ultrasound and MRI of her back and plain films. She was sent to [place] emergency department by her orthopedic surgeon after an MRI which reported evidence of discitis at L3-L4. Her pain is very severe and aggravated by any movement she denies any gurjit focal weakness. No acute injury. No falls she denies any incontinence of stool or urine or gurjit sensory loss. She has suffer a recent urinary tract infection. She has history of Mitral valve disease. An outpatient MRI has been obtained. Neurosurgical consultation was requested. 11/19: lumbar pain when she moves, eating her lunch, cultures pending. (Daisy Agustin) Labs, Micro, & Vital Signs Results Date Time Temp Pulse Resp B/P Pulse Ox O2 Delivery O2 Flow Rate FiO2 11/19/16 12:00 98.0 61 16 134/77 94 11/19/16 10:34 70 11/19/16 08:00 98.5 76 17 127/78 95 11/19/16 00:00 97.3 67 18 128/74 100 11/18/16 23:42 19 11/18/16 20:30 97.7 74 19 134/95 96 Nasal Cannula 2 11/18/16 20:15 73 18 143/93 97 Nasal Cannula 2 11/18/16 20:00 97.8 64 18 133/95 100 11/18/16 19:45 97.5 75 21 147/88 96 Nasal Cannula 2 11/18/16 17:32 97.5 80 19 153/101 95 11/18/16 15:06 75 18 161/75 97 Room Air 11/19/16 07:00 Intake Total 1480 ml Output Total 700 ml Balance 780 ml Constitutional Vital Signs Date Time Temp Pulse Resp B/P Pulse Ox O2 Delivery O2 Flow Rate FiO2 11/19/16 12:00 98.0 61 16 134/77 94 11/19/16 10:34 70 11/19/16 08:00 98.5 76 17 127/78 95 11/19/16 00:00 97.3 67 18 128/74 100 11/18/16 23:42 19 11/18/16 20:30 97.7 74 19 134/95 96 Nasal Cannula 2 11/18/16 20:15 73 18 143/93 97 Nasal Cannula 2 11/18/16 20:00 97.8 64 18 133/95 100 11/18/16 19:45 97.5 75 21 147/88 96 Nasal Cannula 2 11/18/16 17:32 97.5 80 19 153/101 95 11/18/16 15:06 75 18 161/75 97 Room Air 11/19/16 07:00 Intake Total 1480 ml Output Total 700 ml Balance 780 ml (Daisy Agustin) Review of Systems/Exam Exam Ms. Villanueva is alert, awake and oriented to time, place and person. Speech is fluent. Follows commands well. Cranial nerve examination: pupils equal, round, and reactive to light. Extra- ocular movements are intact. Facial motor are normal and symmetrical. Neck is soft and supple. Muscle strength is 5/5 in all muscle groups of both upper extremities including deltoid, biceps, triceps, brachioradialis, wrist extension and software quality analyst. 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 Sensory examination is intact to light touch in both the upper and lower extremities, symmetrically. There is a bilateral plantar flexion response. Hoffmanns sign is negative. There is no clonus or other abnormal reflexes noted. Cerebellar examination is intact to [id number] test (Daisy Agustin) Medications Current Medications Current Medications Medications (Trade) Dose Ordered Sig/Fabby Route PRN Reason Start Time Stop Time Status Last Admin Dose Admin Furosemide (Lasix) 40 mg DAILY PO 11/19/16 09:00 11/19/16 08:25 Potassium Chloride 8 meq 8 meq DAILY PO 11/19/16 09:00 11/19/16 08:23 Sodium Chloride (NS 1000 ml Inj) 1,000 ml @ 100 mls/hr Q10H IV 11/18/16 15:00 11/19/16 11:30 Sodium Chloride (NS Flush) 2 ml UNSCH PRN IV FLUSH FLUSH AFTER USING IV ACCESS 11/18/16 15:00 Sodium Chloride (NS Flush) 2 ml BID IV FLUSH 11/18/16 21:00 11/19/16 08:24 Acetaminophen (Tylenol) 650 mg Q4H PRN PO TEMP > 100.4 11/18/16 15:00 Ondansetron HCl (Zofran Inj) 4 mg Q6H PRN IVP NAUSEA OR VOMITING 11/18/16 15:00 Bisacodyl (Dulcolax Supp) 10 mg DAILY PRN RECTAL CONSTIPATION 11/18/16 15:00 Docusate Sodium (Colace) 100 mg Q12HR PO 11/18/16 15:00 11/19/16 08:23 Naloxone HCl (Narcan Inj) 0.4 mg UNSCH PRN IV SEE LABEL COMMENTS 11/18/16 15:00 (Daisy Agustin) Plan Plan Remarks Dr. Judge dw Dr. Moser, recommending pt be started on empiric antibiotic therapy while waiting for cultures due to risk of epidural abscess formation, f/u lumbar cultures (Daisy Agustin) Attending Statement Continue neuro checks in a serial fashion. Respiratory. pulmonary toilette, nasotracheal suction, and breathing treatments with nebulizers. PT and OT Nutrition. Oral diet Endocrine. Monitor serial Acu checks and SSI for tight control ID awaiting cultures. Recommend to start empiric ABX GERD. Protonix for stress ulcer prophylaxis Markel hose and SCD's for DVT prophylaxis The exam, history, and the medical decision-making described in the above note were completed with the assistance of the mid-level provider. I reviewed and agree with the findings presented. I attest that I had a [id number] encounter with the patient on the same day, and personally performed and documented my assessment and findings in the medical record. (Jairon Judge MD) Daisy Agustin November 19, 2016 13:31 Jairon Judge MD November 21, 2016 20:34
[2016-11-19] MEDS ORDERED: Vancomycin Consult Pharmacy 1 EA OTHER SCH (14:45)
--- NOTE | 2016-11-19 14:56 | EC ---
Study Study Date:11/19/2016 STUDY CONCLUSIONS SUMMARY - Left ventricle: The cavity size was normal. Wall thickness was normal. Systolic function was normal. The estimated ejection fraction was in the range of 55% to 65%. Wall motion was normal; there were no regional wall motion abnormalities. - Aortic valve: Mild regurgitation. - Mitral valve: Mild regurgitation. - Tricuspid valve: Mild-moderate regurgitation. Impressions: No evidence of endocarditis. If LV function is below 40, please consider prescribing an ACEI or ARB or document rationale for non-use. PROCEDURE DATA STUDY STATUS: Elective. Procedure: Transthoracic echocardiography. Image quality was good. Scanning was performed from the parasternal, apical, and subcostal acoustic windows. Study completion: The patient tolerated the procedure well. Transthoracic echocardiography. M-mode, complete 2D, complete spectral Doppler, and color Doppler. Height: Height: 60in. Weight: Weight: 157.7lb. Body mass index: BMI: 30.9kg/m^2. Body surface area: BSA: 1.69m^2. Patient status: Inpatient. CARDIAC ANATOMY LEFT VENTRICLE: The cavity size was normal. Wall thickness was normal. Systolic function was normal. The estimated ejection fraction was in the range of 55% to 65%. Wall motion was normal; there were no regional wall motion abnormalities. AORTIC VALVE: Trileaflet; normal thickness leaflets. Doppler: Transvalvular velocity was within the normal range. There was no stenosis. Mild regurgitation. AORTA: Aortic root: The aortic root was normal in size. MITRAL VALVE: Structurally normal valve. Doppler: Transvalvular velocity was within the normal range. There was no evidence for stenosis. Mild regurgitation. LEFT ATRIUM: The atrium was normal in size. RIGHT VENTRICLE: The cavity size was normal. Wall thickness was normal. PULMONIC VALVE: Doppler: Transvalvular velocity was within the normal range. There was no evidence for stenosis. No regurgitation. TRICUSPID VALVE: Structurally normal valve. Doppler: Transvalvular velocity was within the normal range. Mild-moderate regurgitation. PULMONARY ARTERY: The main pulmonary artery was normal-sized. Systolic pressure was within the normal range. RIGHT ATRIUM: The atrium was normal in size. PERICARDIUM: There was no pericardial effusion. SYSTEMIC VEINS: Inferior vena cava: The vessel was normal in size. Patient weight: 157.7lb _Ejection fraction:_ 65-75% _Fractional shortening:_ 32% up to 5Kg 5-11.5Kg 11.6-22.9Kg 23-45Kg 45-57Kg Aortic Root 7-13 <17 13-22 17-27 17-27 LA diam 6-13 <23 24-38 33-47 37-40 RVID 10-17 7-15 7-15 7-18 8-17 LVIDd 12-22 <32 24-38 33-47 37-40 LVPW 2-4 3-6 5-7 6-8 7-8 IVS 2-4 3-6 5-7 6-8 7-8 BASIC MEASUREMENTS ADULT NORMAL Left ventricle LV internal dimension, ED, chordal level, 46.6 mm 43-52 PLAX LV internal dimension, ES, chordal level, 35.4 mm 23-38 PLAX Fractional shortening, chordal level, PLAX *24 % >29 LV posterior wall thickness, ED 8.99 mm IVS/LVPW ratio, ED 1.13 <1.3 Ventricular septum Septal thickness, ED 10.2 mm Aortic valve Leaflet separation 20 mm 15-26 Left atrium Anterior-posterior dimension 29 mm Anterior-posterior dimension index 1.72 cm/m^2 <2.2 Right ventricle RV internal dimension, ED, PLAX 20.1 mm 19-38 BASIC MEASUREMENTS ADULT NORMAL Aortic valve Leaflet separation 20 mm 15-26 Aorta Root diameter, ED 29 mm 20-37 DOPPLER MEASUREMENTS ADULT NORMAL Aortic valve Peak velocity, S 143 cm/s Mitral valve Peak E-wave velocity 64.2 cm/s Peak A-wave velocity 81.4 cm/s Peak E/A ratio 0.8 Tricuspid valve Regurgitant peak velocity 305 cm/s Peak RV-RA gradient, S 37 mm Hg LEGEND: Mean values are shown as u=mean value. Asterisk (*) martin values outside specified normal range. Prepared and signed by Rivas Bright [id number]
--- NOTE | 2016-11-19 15:13 | HHI.IDPN ---
Note Infectious Disease Note Patient feels okay. No distress. Continues to have back pain. Afebrile. No other complaints. Wound culture pending. PAST MEDICAL HISTORY 1. Mitral valve disease 2. Hypertension. 3. Cholecystectomy, 4. Cataract surgery bilateral 5. Right hip replacement, 6. Bilateral knee replacements. ALLERGIES KEFLEX - CAUSED DIFFICULTY WITH VISION. ACTONEL MEDICATIONS Medications (Trade) Dose Ordered Sig/Fabby Route PRN Reason Start Time Stop Time Status Last Admin Dose Admin Furosemide (Lasix) 40 mg DAILY PO 11/19/16 09:00 11/19/16 08:25 Potassium Chloride 8 meq 8 meq DAILY PO 11/19/16 09:00 11/19/16 08:23 Sodium Chloride (NS 1000 ml Inj) 1,000 ml @ 100 mls/hr Q10H IV 11/18/16 15:00 11/19/16 11:30 Sodium Chloride (NS Flush) 2 ml UNSCH PRN IV FLUSH FLUSH AFTER USING IV ACCESS 11/18/16 15:00 Sodium Chloride (NS Flush) 2 ml BID IV FLUSH 11/18/16 21:00 11/19/16 08:24 Acetaminophen (Tylenol) 650 mg Q4H PRN PO TEMP > 100.4 11/18/16 15:00 Ondansetron HCl (Zofran Inj) 4 mg Q6H PRN IVP NAUSEA OR VOMITING 11/18/16 15:00 Bisacodyl (Dulcolax Supp) 10 mg DAILY PRN RECTAL CONSTIPATION 11/18/16 15:00 Docusate Sodium (Colace) 100 mg Q12HR PO 11/18/16 15:00 11/19/16 08:23 Naloxone HCl 0.4 mg 0.4 mg UNSCH PRN IV SEE LABEL COMMENTS 11/18/16 15:00 Pharmacy Profile Note (Vancomycin Consult Pharmacy) 0 ml @ 0 mls/hr UNSCH OTHER 11/19/16 14:45 OBJECTIVE: Vital Signs Date Time Temp Pulse Resp B/P Pulse Ox O2 Delivery O2 Flow Rate FiO2 11/19/16 12:00 98.0 61 16 134/77 94 11/19/16 10:34 70 11/19/16 08:00 98.5 76 17 127/78 95 11/19/16 00:00 97.3 67 18 128/74 100 11/18/16 23:42 19 11/18/16 20:30 97.7 74 19 134/95 96 Nasal Cannula 2 11/18/16 20:15 73 18 143/93 97 Nasal Cannula 2 11/18/16 20:00 97.8 64 18 133/95 100 11/18/16 19:45 97.5 75 21 147/88 96 Nasal Cannula 2 11/18/16 17:32 97.5 80 19 153/101 95 11/18/16 11/18/16 11/19/16 15:00 23:00 07:00 Intake Total 1480 ml Output Total 700 ml Balance 780 ml Intake Oral 480 ml IV Total 1000 ml Output Urine Total 700 ml Laboratory Tests Test 11/18/16 11/19/16 13:40 08:19 White Blood Count 6.5 TH/MM3 5.2 TH/MM3 Red Blood Count 4.28 MIL/MM3 3.35 MIL/MM3 Hemoglobin 11.8 GM/DL 9.3 GM/DL Hematocrit 36.4 % 28.5 % Mean Corpuscular Volume 85.2 FL 84.9 FL Mean Corpuscular Hemoglobin 27.5 PG 27.7 PG Mean Corpuscular Hemoglobin 32.3 % 32.6 % Concent Red Cell Distribution Width 15.3 % 15.5 % Platelet Count 222 TH/MM3 189 TH/MM3 Mean Platelet Volume 7.9 FL 7.8 FL Neutrophils (%) (Auto) 73.0 % 70.1 % Lymphocytes (%) (Auto) 18.2 % 20.4 % Monocytes (%) (Auto) 6.2 % 6.4 % Eosinophils (%) (Auto) 1.8 % 2.1 % Basophils (%) (Auto) 0.8 % 1.0 % Neutrophils # (Auto) 4.8 TH/MM3 3.6 TH/MM3 Lymphocytes # (Auto) 1.2 TH/MM3 1.1 TH/MM3 Monocytes # (Auto) 0.4 TH/MM3 0.3 TH/MM3 Eosinophils # (Auto) 0.1 TH/MM3 0.1 TH/MM3 Basophils # (Auto) 0.0 TH/MM3 0.0 TH/MM3 CBC Comment DIFF FINAL DIFF FINAL Differential Comment Erythrocyte Sedimentation Rate 20 mm/hr Laboratory Tests Test 11/18/16 11/19/16 13:40 08:19 Sodium Level 140 MEQ/L 143 MEQ/L Potassium Level 4.2 MEQ/L 3.4 MEQ/L Chloride Level 105 MEQ/L 109 MEQ/L Carbon Dioxide Level 26.8 MEQ/L 25.3 MEQ/L Anion Gap 8 MEQ/L 9 MEQ/L Blood Urea Nitrogen 15 MG/DL 10 MG/DL Creatinine 0.67 MG/DL 0.51 MG/DL Estimat Glomerular Filtration 84 ML/MIN 115 ML/MIN Rate Random Glucose 93 MG/DL 77 MG/DL Calcium Level 9.6 MG/DL 8.6 MG/DL C-Reactive Protein 3.00 MG/DL Total Bilirubin 0.4 MG/DL Direct Bilirubin 0.1 MG/DL Indirect Bilirubin 0.3 MG/DL Aspartate Amino Transf 22 U/L (AST/SGOT) Alanine Aminotransferase 16 U/L (ALT/SGPT) Alkaline Phosphatase 70 U/L Total Protein 5.4 GM/DL Albumin 2.5 GM/DL Microbiology Date/Time Procedure Status Source Growth 11/18/16 16:05 Aerobic Blood Culture - Preliminary Resulted Blood Peripheral NO GROWTH IN 1 DAY 11/18/16 16:05 Anaerobic Blood Culture - Preliminary Resulted Blood Peripheral NO GROWTH IN 1 DAY 11/18/16 16:15 Aerobic Blood Culture - Preliminary Resulted Blood Peripheral NO GROWTH IN 1 DAY 11/18/16 16:15 Anaerobic Blood Culture - Preliminary Resulted Blood Peripheral NO GROWTH IN 1 DAY 11/18/16 19:20 Gram Stain - Final Resulted Abscess Other 11/18/16 19:20 Wound Culture Resulted Abscess Other Pending PHYSICAL EXAMINATION GENERAL: This is a slender female who is in no acute distress. She is awake and alert and oriented. HEENT: Extraocular movements grossly intact. Pupils reactive to light. No icterus. Oropharynx moist mucosa. No visible lesions. NECK: Supple. No adenopathy. No swelling. LUNGS: Clear to auscultation. HEART: Regular S1 and S2. No murmurs. No rubs. No gallops. ABDOMEN: Soft, nontender. No palpable masses. Right lower back without tenderness on palpation. EXTREMITIES: No clubbing or cyanosis or edema. 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 Resection of the second toe on the right foot from deformities which the patient attributes to wearing of high heel shoes. SKIN: No rash. NEUROLOGIC: No gross focal findings. PSYCHIATRIC: The patient is calm and cooperative. ASSESSMENT 1. Diskitis of the lumbar spine. Post biopsy. Culture pending. 2. Intractable back pain. RECOMMENDATIONS 1. Start Vancomycin. 2. Monitor blood cultures. 3. Monitor wound culture. 72 hours till finalized. 4. Monitor result of nuclear scan. May have to treat empirically with antibiotics if the culture is negative. Brian Moser MD November 19, 2016 15:12
--- NOTE | 2016-11-19 15:47 | RADRPT ---
EXAM DATE/TIME: 11/19/2016 10:22 [facility] COMPARISON: DISC ASPIRATION/BIOPSY, November 18, 2016, 18:22. PRIOR BONE SCANS: No correlative bone scan available for comparison. INDICATIONS : Discitis of L3-L4. Back pain and right shoulder pain. DOSE: 31.9 mCi Tc99m MDP IV IMAGING: SPECT/CT imaging with fusion was performed. RADIATION DOSE: 6.48 CTDIvol (mGy) MEDICAL HISTORY : Hypertension. SURGICAL HISTORY : Cholecystectomy. Total knee replacement, left. Total knee replacement, right. Right hip replacement. ENCOUNTER: Initial ACUITY: 1 month PAIN SCALE: 8/10 LOCATION: Back. TECHNIQUE: Three hours post intravenous administration of radiotracer, whole body bone scan imaging was performe d. FINDINGS: The examination demonstrates a focal area of intense tracer accumulation corresponding to the destruc tive areas in the end plates across the L3/4 disc level. No other significant abnormal change is seen within the lumbar spine. There are some scattered areas of low grade uptake which is felt to be seco ndary to degenerative arthritis. CONCLUSION: There is intense uptake across the disc space at L3-4 this corresponds to the destructive abnormality seen on the CT source data. In the appropriate setting this would be most consistent with a discitis . There are some patchy areas of low grade uptake identified which are felt to be secondary to osteoa rthritis. Pascual Merlos MD on November 19, 2016 at 15:41 Board Certified Radiologist. This report was verified electronically.
[2016-11-19] MEDS ORDERED: VANCOMYCIN 1,500 MG/NS 500 ML IV SCH ×2 (16:00)
[2016-11-20 00:30] VITALS: BP 147/68; PULSE 59; RESP 19; TEMP 97.9; O2SAT 96
[2016-11-20 04:30] VITALS: BP 140/66; PULSE 59; RESP 20; TEMP 98; O2SAT 97
[2016-11-20] MEDS: SODIUM CHLOR 0.9% 1000 ML INJ 1,000 ML IV SCH ×2 (06:02→17:00)
[2016-11-20 08:00] VITALS: BP 155/82; PULSE 70; RESP 16; TEMP 97.6; O2SAT 93
--- NOTE | 2016-11-20 09:12 | HHI.PR ---
Subjective Remarks This is a pleasant 81 y/o Female with chronic low back pain and chronic left lower quadrant pain, for one to two months, She's had fairly extensive workup including abdominal ultrasound and MRI of her back and plain films. She is seen orthopedic follow-up as well as her regular doctor for this multiple times. She received a call today from orthopedist Dr. Horton who according to the patient told her to go to the emergency room. The patient really doesn't know why she was sent here and she says she didn't ask him. Pain is chronic and not unchanged today. No acute injury. No new neurologic deficit. after contacted Doctor Sol she was sent To ER due to findings in new MRI of the spine. as we know she has Hypertension will continue Home medicines. 11/19: Seen in her bedroom, will remove Solorzano cath today, no complaint by patient , no nausea, vomit or diarrhea. status post L3-L4 disc aspiration. 11/20: Patient in her bedroom, stable, decided by Neurosurgery and ID to start Empiric antibiotics, was given Vancomycin Nurse Miss Galarza following, today, no new issues, no nausea, vomit or diarrhea, removed Telemetry. Objective Vital Signs Date Time Temp Pulse Resp B/P Pulse Ox O2 Delivery O2 Flow Rate FiO2 11/20/16 08:00 97.6 70 16 155/82 93 11/20/16 04:30 98.0 59 20 140/66 97 11/20/16 00:30 97.9 59 19 147/68 96 11/19/16 20:30 97.3 58 18 160/78 96 11/19/16 19:47 59 11/19/16 16:00 97.3 61 18 147/80 95 11/19/16 12:00 98.0 61 16 134/77 94 11/19/16 10:34 70 I/O 11/19/16 11/19/16 11/19/16 11/20/16 11/20/16 11/20/16 07:00 15:00 23:00 07:00 15:00 23:00 Intake Total 1480 ml 1863 ml 600 ml Output Total 700 ml 800 ml Balance 780 ml 1863 ml -200 ml Intake Oral 480 ml 1000 ml 600 ml IV Total 1000 ml 863 ml Output Urine Total 700 ml 800 ml # Voids 3 8 # Bowel Movements 0 0 Result Diagram: 11/19/16 0819 11/19/16 0819 Imaging Last Impressions SPECT Scan-Bone Nuclear Medicine 11/19/16 0000 Signed Impressions: Service Date/Time: Saturday, November 19, 2016 10:22 - CONCLUSION: There is intense uptake across the disc space at L3-4 this corresponds to the destructive abnormality seen on the CT source data. In the appropriate setting this would be most consistent with a discitis. There are some patchy areas of low grade uptake identified which are felt to be secondary to osteoarthritis. Pascual Merlos MD Needle Biopsy/Aspiration X-Ray 11/18/16 0000 Signed Impressions: Service Date/Time: November 18:22 - CONCLUSION: Uncomplicated needle biopsy of the L3-4 disc as above. Adair Peter MD Procedures Aspiration of L3-L4 Disc space Other Results Laboratory Tests Test 11/18/16 11/18/16 11/18/16 11/19/16 13:40 13:46 16:05 08:19 Erythrocyte Sedimentation Rate 20 mm/hr C-Reactive Protein 3.00 MG/DL Prothrombin Time 11.1 SEC Prothromb Time International 1.0 RATIO Ratio Activated Partial 26.1 SEC Thromboplast Time Urine Color LIGHT-YELLOW Urine Turbidity CLOUDY Urine pH 7.5 Urine Specific [place] 1.010 Urine Protein NEG mg/dL Urine Glucose (UA) NEG mg/dL Urine Ketones 10 mg/dL Urine Occult Blood NEG Urine Nitrite NEG Urine Bilirubin NEG Urine Urobilinogen LESS THAN 2.0 MG/DL Urine Leukocyte Esterase NEG Urine RBC 2 /hpf Urine Squamous Epithelial <1 /hpf Cells Urine Amorphous Sediment FEW Urine Bacteria OCC /hpf Urine Mucus FEW /lpf Microscopic Urinalysis Comment CULT NOT INDICATED White Blood Count 5.2 TH/MM3 Red Blood Count 3.35 MIL/MM3 Hemoglobin 9.3 GM/DL Hematocrit 28.5 % Mean Corpuscular Volume 84.9 FL Mean Corpuscular Hemoglobin 27.7 PG Mean Corpuscular Hemoglobin 32.6 % Concent Red Cell Distribution Width 15.5 % Platelet Count 189 TH/MM3 Mean Platelet Volume 7.8 FL Neutrophils (%) (Auto) 70.1 % Lymphocytes (%) (Auto) 20.4 % Monocytes (%) (Auto) 6.4 % Eosinophils (%) (Auto) 2.1 % Basophils (%) (Auto) 1.0 % Neutrophils # (Auto) 3.6 TH/MM3 Lymphocytes # (Auto) 1.1 TH/MM3 Monocytes # (Auto) 0.3 TH/MM3 Eosinophils # (Auto) 0.1 TH/MM3 Basophils # (Auto) 0.0 TH/MM3 CBC Comment DIFF FINAL Differential Comment Sodium Level 143 MEQ/L Potassium Level 3.4 MEQ/L Chloride Level 109 MEQ/L Carbon Dioxide Level 25.3 MEQ/L Anion Gap 9 MEQ/L Blood Urea Nitrogen 10 MG/DL Creatinine 0.51 MG/DL Estimat Glomerular Filtration 115 ML/MIN Rate Random Glucose 77 MG/DL Calcium Level 8.6 MG/DL Total Bilirubin 0.4 MG/DL Direct Bilirubin 0.1 MG/DL Indirect Bilirubin 0.3 MG/DL Aspartate Amino Transf 22 U/L (AST/SGOT) Alanine Aminotransferase 16 U/L (ALT/SGPT) Alkaline Phosphatase 70 U/L Total Protein 5.4 GM/DL Albumin 2.5 GM/DL Objective Remarks GENERAL: Elderly well-developed patient in no apparent distress. SKIN: Focused skin assessment reveals no rash and nodules. Skin is Warm and dry. HEAD: Atraumatic. Normocephalic. EYES: Pupils equal and round. No scleral icterus. No injection or drainage. ENT: No nasal bleeding or discharge. Mucous membranes pink and moist. NECK: Trachea midline. No JVD. CARDIOVASCULAR: Regular rate and rhythm. No murmur appreciated. RESPIRATORY: No accessory muscle use. Clear to auscultation. Breath sounds equal bilaterally. GASTROINTESTINAL: Abdomen soft, nontender without rebound or guarding, nondistended. Hepatic and splenic margins not palpable. MUSCULOSKELETAL: No clubbing, cyanosis or edema, has malformation of left hand. NEUROLOGICAL: Awake and alert. No obvious cranial nerve deficits. Motor grossly within normal limits. Normal speech. PSYCHIATRIC: Appropriate mood and affect; insight and judgment normal. Medications and IVs Current Medications Medications (Trade) Dose Ordered Sig/Fabby Route Start Time Stop Time Status Last Admin (Lasix) 40 mg DAILY PO 11/19/16 09:00 11/19/16 08:25 Potassium Chloride 8 meq 8 meq DAILY PO 11/19/16 09:00 11/19/16 08:23 (NS 1000 ml Inj) 1,000 ml @ 100 mls/hr Q10H IV 11/18/16 15:00 11/20/16 06:02 (NS Flush) 2 ml UNSCH PRN IV FLUSH 11/18/16 15:00 (NS Flush) 2 ml BID IV FLUSH 11/18/16 21:00 11/19/16 08:24 (Tylenol) 650 mg Q4H PRN PO 11/18/16 15:00 (Zofran Inj) 4 mg Q6H PRN IVP 11/18/16 15:00 (Dulcolax Supp) 10 mg DAILY PRN RECTAL 11/18/16 15:00 (Colace) 100 mg Q12HR PO 11/18/16 15:00 11/19/16 22:15 Naloxone HCl 0.4 mg 0.4 mg UNSCH PRN IV 11/18/16 15:00 Pharmacy Profile Note 0 ml @ 0 mls/hr UNSCH OTHER 11/19/16 14:45 (Vancomycin Inj/ NS 500 ml Inj) 515 ml @ 257.5 mls/ hr Q24H IV 11/19/16 16:00 11/19/16 16:37 Miscellaneous Information SPECIFIC LAB TO BE MELODY... ONCE ONCE .XX 11/22/16 15:45 11/22/16 15:46 A/P Assessment and Plan Sent to ER by Orthopedic peer specialist Doctor Sol who performed a MRI and found suspicious for discitis, was discussed then with Neurosurgery specialist Doctor Jairon Judge and recommended for CT guided aspiration of the disc in question, recommended to hold antibiotics and consult ID specialist. after Bone scan performed 11/19/16 has intense uptake across the disc space at L3-L4 corresponds with Discitis. started on Vancomycin. 1. Discitis for spine biopsy and follow by Neurosurgery and ID specialist started on Empiric Vancomycin started. 2. Hypertension uncontrolled started on Amlodipine 5 mg daily and following 3. Hypokalemia was 3.4 yesterday given 40 meq of potassium chloride she continue her home schedule of 8 meq daily. DVT prophylaxis SCDs remove telemetry today. Code Status Full code Discussed Condition With Patient, all questions answered to the best of my abilities. Discharge Planning once cleared by specialists Lalo Stuart MD November 20, 2016 09:12
[2016-11-20] MEDS ORDERED: POTASSIUM CHLORIDE 20 MEQ CONTROLLED RELEASE TAB PO ONE (09:30)
[2016-11-20] MEDS: SODIUM CHLORIDE 0.9% FLUSH 10 ML FLUSH IV FLUSH SCH ×2 (09:34→21:26)
[2016-11-20] MEDS: POTASSIUM CHLORIDE 8 MEQ CONTROLLED RELEASE TAB PO SCH (09:34)
[2016-11-20] MEDS: DOCUSATE SODIUM 100 MG CAP PO SCH ×2 (09:34→21:26)
[2016-11-20] MEDS: FUROSEMIDE 40 MG TAB PO SCH (09:34)
[2016-11-20] MEDS: amLODIPine BESYLATE 5 MG TAB PO SCH (09:36)
--- NOTE | 2016-11-20 11:23 | HHI.IDPN ---
Subjective Subjective Remarks ID COVERAGE Chart reviewed 81 year old female, has had chronic low back pain. Seen ortho as outpatient and had MRI which showed L2-L3 discitis. Underwent biopsy/aspiration of her back Notes reviewed No fever Back pain ok when lying still, bad whenever she moves Incontinent of urine ESR 20 CRP 3 One out 2 BC with GPC Echo ok UA ok Back aspirate C/S pending, G/S no organism seen Antibiotics Vancomycin IV Lines PIV Past Medical History Mitral valve disease Hypertension. Cholecystectomy, Cataract surgery bilateral Right hip replacement, Bilateral knee replacements. Allergies: Coded Allergies: Actonel (Verified Allergy, Severe, Rash, 10/31/16) Keflex (Verified Allergy, Mild, EYES NOT OPENING, 10/31/16) Objective . Vital Signs Date Time Temp Pulse Resp B/P Pulse Ox O2 Delivery O2 Flow Rate FiO2 11/20/16 08:00 97.6 70 16 155/82 93 11/20/16 04:30 98.0 59 20 140/66 97 11/20/16 00:30 97.9 59 19 147/68 96 11/19/16 20:30 97.3 58 18 160/78 96 11/19/16 19:47 59 11/19/16 16:00 97.3 61 18 147/80 95 11/19/16 12:00 98.0 61 16 134/77 94 11/19/16 11/19/16 11/20/16 14:59 22:59 06:59 Intake Total 1863 ml 600 ml Output Total 800 ml Balance 1863 ml -200 ml Intake Oral 1000 ml 600 ml IV Total 863 ml Output Urine Total 800 ml # Voids 3 8 # Bowel Movements 0 0 . Laboratory Tests Test 11/18/16 11/19/16 13:40 08:19 White Blood Count 6.5 TH/MM3 5.2 TH/MM3 Red Blood Count 4.28 MIL/MM3 3.35 MIL/MM3 Hemoglobin 11.8 GM/DL 9.3 GM/DL Hematocrit 36.4 % 28.5 % Mean Corpuscular Volume 85.2 FL 84.9 FL Mean Corpuscular Hemoglobin 27.5 PG 27.7 PG Mean Corpuscular Hemoglobin 32.3 % 32.6 % Concent Red Cell Distribution Width 15.3 % 15.5 % Platelet Count 222 TH/MM3 189 TH/MM3 Mean Platelet Volume 7.9 FL 7.8 FL Neutrophils (%) (Auto) 73.0 % 70.1 % Lymphocytes (%) (Auto) 18.2 % 20.4 % Monocytes (%) (Auto) 6.2 % 6.4 % Eosinophils (%) (Auto) 1.8 % 2.1 % Basophils (%) (Auto) 0.8 % 1.0 % Neutrophils # (Auto) 4.8 TH/MM3 3.6 TH/MM3 Lymphocytes # (Auto) 1.2 TH/MM3 1.1 TH/MM3 Monocytes # (Auto) 0.4 TH/MM3 0.3 TH/MM3 Eosinophils # (Auto) 0.1 TH/MM3 0.1 TH/MM3 Basophils # (Auto) 0.0 TH/MM3 0.0 TH/MM3 CBC Comment DIFF FINAL DIFF FINAL Differential Comment Erythrocyte Sedimentation Rate 20 mm/hr Laboratory Tests Test 11/18/16 11/19/16 13:40 08:19 Sodium Level 140 MEQ/L 143 MEQ/L Potassium Level 4.2 MEQ/L 3.4 MEQ/L Chloride Level 105 MEQ/L 109 MEQ/L Carbon Dioxide Level 26.8 MEQ/L 25.3 MEQ/L Anion Gap 8 MEQ/L 9 MEQ/L Blood Urea Nitrogen 15 MG/DL 10 MG/DL Creatinine 0.67 MG/DL 0.51 MG/DL Estimat Glomerular Filtration 84 ML/MIN 115 ML/MIN Rate Random Glucose 93 MG/DL 77 MG/DL Calcium Level 9.6 MG/DL 8.6 MG/DL C-Reactive Protein 3.00 MG/DL Total Bilirubin 0.4 MG/DL Direct Bilirubin 0.1 MG/DL Indirect Bilirubin 0.3 MG/DL Aspartate Amino Transf 22 U/L (AST/SGOT) Alanine Aminotransferase 16 U/L (ALT/SGPT) Alkaline Phosphatase 70 U/L Total Protein 5.4 GM/DL Albumin 2.5 GM/DL Microbiology Date/Time Procedure Status Source Growth 11/18/16 16:05 Aerobic Blood Culture - Preliminary Resulted Blood Peripheral NO GROWTH IN 2 DAYS 11/18/16 16:05 Anaerobic Blood Culture - Preliminary Resulted Blood Peripheral NO GROWTH IN 2 DAYS 11/18/16 16:15 Aerobic Blood Culture - Preliminary Resulted Blood Peripheral Gram Positive Cocci 11/18/16 16:15 Anaerobic Blood Culture - Preliminary Resulted Blood Peripheral NO GROWTH IN 2 DAYS 11/18/16 19:20 Gram Stain - Final Resulted Abscess Other 11/18/16 19:20 Wound Culture - Preliminary Resulted Abscess Other NO GROWTH IN 24 HOURS. Imaging Last 72 hours Impressions SPECT Scan-Bone Nuclear Medicine 11/19/16 0000 Signed Impressions: Service Date/Time: Saturday, November 19, 2016 10:22 - CONCLUSION: There is intense uptake across the disc space at L3-4 this corresponds to the destructive abnormality seen on the CT source data. In the appropriate setting this would be most consistent with a discitis. There are some patchy areas of low grade uptake identified which are felt to be secondary to osteoarthritis. Pascual Merlos MD Needle Biopsy/Aspiration X-Ray 11/18/16 0000 Signed Impressions: Service Date/Time: November 18:22 - CONCLUSION: Uncomplicated needle biopsy of the L3-4 disc as above. Adair Peter MD Physical Exam GENERAL: She is awake and alert and oriented. Not in distress SKIN: Cool and dry, no generalized rash or ecchymoses HEENT: Extraocular movements grossly intact. Pupils reactive to light. No icterus. Oropharynx moist mucosa. No visible lesions. NECK: Supple. No adenopathy. No swelling. Not tender LUNGS: Clear to auscultation. No rales, rhonchi or wheezing HEART: Regular S1 and S2. No murmurs. No rubs. No gallops. ABDOMEN: Soft, nontender, not distended. No palpable masses. Bowel sounds present and normoactive BACK: Right lower back without tenderness on palpation. EXTREMITIES: No clubbing or cyanosis or edema. 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 Resection of the second toe on the right foot. No calf tenderness NEUROLOGIC: No gross focal findings. PSYCHIATRIC: The patient is calm and cooperative. LINE: PIV with no evidence of infection Assessment & Plan Remarks IMPRESSION L2-L3 discitis, ?infectious, inflammatory - ESR only 20 - had biopsy and C/S pending One out of 2 BC with GPC, ?significance - ?real vs contaminant Intractable back pain. RECOMMENDATIONS Continue Vancomycin. Monitor blood cultures. Follow wound culture. 72 hours till finalized. May have to treat empirically with antibiotics if the culture is negative. Monitor progress Pain control Celeste Rain MD November 20, 2016 11:23
[2016-11-20] MEDS: VANCOMYCIN 1,000 MG/NS 250 ML IV SCH ×2 (11:52)
[2016-11-20 12:00] VITALS: BP 145/82; PULSE 77; RESP 17; TEMP 97.1; O2SAT 95
--- NOTE | 2016-11-20 15:29 | HHI.NSPN ---
(Alli Lal) Note Status Status: Progress Note (Alli Lal) Interval History Interval History This is a 81 y/o female with chronic low back pain and chronic left lower quadrant pain. Apparently her pain has been getting worse for the past two months. She's had fairly extensive workup including abdominal ultrasound and MRI of her back and plain films. She was sent to [place] emergency department by her orthopedic surgeon after an MRI which reported evidence of discitis at L3-L4. Her pain is very severe and aggravated by any movement she denies any gurjit focal weakness. No acute injury. No falls she denies any incontinence of stool or urine or gurjit sensory loss. She has suffer a recent urinary tract infection. She has history of Mitral valve disease. An outpatient MRI has been obtained. Neurosurgical consultation was requested. 11/19: lumbar pain when she moves, eating her lunch, cultures pending. 11/20: Patient seen with Dr Sanchez. She is in bed when seen. She is awake and alert. She denies any pain at the present time. (Alli Lal) Labs, Micro, & Vital Signs Constitutional Vital Signs Date Time Temp Pulse Resp B/P Pulse Ox O2 Delivery O2 Flow Rate FiO2 11/20/16 12:00 97.1 77 17 145/82 95 11/20/16 08:00 97.6 70 16 155/82 93 11/20/16 04:30 98.0 59 20 140/66 97 11/20/16 00:30 97.9 59 19 147/68 96 11/19/16 20:30 97.3 58 18 160/78 96 11/19/16 19:47 59 11/19/16 16:00 97.3 61 18 147/80 95 11/20/16 07:00 Intake Total 2463 ml Output Total 800 ml Balance 1663 ml (Alli Lal) Review of Systems/Exam ROS Back: Patient denies any back pain. Neurological: Paient denies any headache, dizziness, numbness or tingling. Exam AAOx3 Speech clear & appropriate Follows commands Back TTP to lumbar region (Alli Lal) Medications Current Medications Current Medications Medications (Trade) Dose Ordered Sig/Fabby Route Start Time Stop Time Status Last Admin (Lasix) 40 mg DAILY PO 11/19/16 09:00 11/20/16 09:34 Potassium Chloride 8 meq 8 meq DAILY PO 11/19/16 09:00 11/20/16 09:34 (NS 1000 ml Inj) 1,000 ml @ 100 mls/hr Q10H IV 11/18/16 15:00 11/20/16 06:02 (NS Flush) 2 ml UNSCH PRN IV FLUSH 11/18/16 15:00 (NS Flush) 2 ml BID IV FLUSH 11/18/16 21:00 11/20/16 09:34 (Tylenol) 650 mg Q4H PRN PO 11/18/16 15:00 (Zofran Inj) 4 mg Q6H PRN IVP 11/18/16 15:00 (Dulcolax Supp) 10 mg DAILY PRN RECTAL 11/18/16 15:00 (Colace) 100 mg Q12HR PO 11/18/16 15:00 11/20/16 09:34 Naloxone HCl 0.4 mg 0.4 mg UNSCH PRN IV 11/18/16 15:00 (Vancomycin Consult Pharmacy) 0 ml @ 0 mls/hr UNSCH OTHER 11/19/16 14:45 Miscellaneous Information SPECIFIC LAB TO BE MELODY... ONCE ONCE .XX 11/21/16 23:45 11/21/16 23:46 Amlodipine Besylate 5 mg 5 mg DAILY PO 11/20/16 10:00 11/20/16 09:36 (Vancomycin Inj/ NS 250 ml Inj) 250 ml @ 250 mls/hr Q12H IV 11/20/16 12:00 11/20/16 11:52 (Alli Lal) Medical Decision Making MDM Remarks Impression: 1. L2-L3 discitis 2. Intractable back pain (Alli Lal) Plan Plan Remarks Continue vancomycin per ID Pain control (Alli Lal) Attending Statement I have personally seen and examined the patient on the date of this note. Pertinent documentation and study results have been reviewed by the undersigned. I have personally developed the treatment plan and performed medical decision making. Agree with findings, exam, and treatment plan as noted above. Lower extremity exam remains within normal limits Biopsy results pending Discussed with patient and family in room today (Pascual Sanchez MD) Alli Lal November 20, 2016 15:29 Pascual Sanchez MD November 21, 2016 16:56
[2016-11-20 16:39] VITALS: BP 131/75; PULSE 91; RESP 18; TEMP 96.8; O2SAT 95
[2016-11-20 20:10] VITALS: BP 136/78; PULSE 75; RESP 18; TEMP 97.4; O2SAT 95
[2016-11-21] VITALS (7 sets, daily range): BP systolic 124–152; BP diastolic 76–90; PULSE 68–80; RESP 16–19; TEMP 96.8–97.7; O2SAT 94–98
[2016-11-21] MEDS: VANCOMYCIN 1,000 MG/NS 250 ML IV SCH ×4 (00:55→11:31)
[2016-11-21] MEDS: SODIUM CHLOR 0.9% 1000 ML INJ 1,000 ML IV SCH ×2 (01:07→12:55)
--- NOTE | 2016-11-21 08:10 | HHI.PR ---
Subjective Remarks resting comfortably with no distress. has minimal to mild low back pain. no fever. asking for something to help her with sleep. Objective Vitals Vital Signs Date Time Temp Pulse Resp B/P Pulse Ox O2 Delivery O2 Flow Rate FiO2 11/21/16 05:45 97.4 73 19 142/79 94 11/21/16 00:30 97.7 80 18 125/90 98 11/20/16 20:10 97.4 75 18 136/78 95 11/20/16 16:39 96.8 91 18 131/75 95 11/20/16 12:00 97.1 77 17 145/82 95 I/O 11/20/16 11/20/16 11/20/16 11/21/16 11/21/16 11/21/16 07:00 15:00 23:00 07:00 15:00 23:00 Intake Total 600 ml 360 ml 800 ml 975 ml Output Total 800 ml Balance -200 ml 360 ml 800 ml 975 ml Intake Oral 600 ml 360 ml 800 ml 975 ml Output Urine Total 800 ml # Voids 8 3 2 4 # Bowel Movements 0 1 0 0 Result Diagram: 11/19/16 0819 11/19/16 0819 Imaging Last Impressions SPECT Scan-Bone Nuclear Medicine 11/19/16 0000 Signed Impressions: Service Date/Time: Saturday, November 19, 2016 10:22 - CONCLUSION: There is intense uptake across the disc space at L3-4 this corresponds to the destructive abnormality seen on the CT source data. In the appropriate setting this would be most consistent with a discitis. There are some patchy areas of low grade uptake identified which are felt to be secondary to osteoarthritis. Pascual Merlos MD Needle Biopsy/Aspiration X-Ray 11/18/16 0000 Signed Impressions: Service Date/Time: November 18:22 - CONCLUSION: Uncomplicated needle biopsy of the L3-4 disc as above. Adair Peter MD Objective Remarks GENERAL: This is a well-nourished, well-developed patient, in no apparent distress. CARDIOVASCULAR: Regular rate and regular rhythm without murmurs, gallops, or rubs. RESPIRATORY: Clear to auscultation. Breath sounds equal bilaterally. No wheezes , rales, or rhonchi. GASTROINTESTINAL: Abdomen soft, non-tender, nondistended. Normal, active bowel sounds MUSCULOSKELETAL: Extremities without clubbing, cyanosis, or edema. NEURO: Alert & Oriented x4 to person, place, time, situation. Moves all ext x4 Procedures lumbar spine biopsy. Medications and IVs Current Medications Furosemide (Lasix) 40 mg DAILY PO Last administered on 11/20/16 09:34; Start 11/19/16 at 09:00 Potassium Chloride 8 meq 8 meq DAILY PO Last administered on 11/20/16 09:34; Start 11/19/16 at 09:00 Sodium Chloride (NS 1000 ml Inj) 1,000 ml @ 100 mls/hr Q10H IV Last administered on 11/21/16 01:07; Start 11/18/16 at 15:00 Sodium Chloride (NS Flush) 2 ml UNSCH PRN IV FLUSH FLUSH AFTER USING IV ACCESS ; Start 11/18/16 at 15:00 Sodium Chloride (NS Flush) 2 ml BID IV FLUSH Last administered on 11/20/16 21: 26; Start 11/18/16 at 21:00 Acetaminophen (Tylenol) 650 mg Q4H PRN PO TEMP > 100.4; Start 11/18/16 at 15:00 Ondansetron HCl (Zofran Inj) 4 mg Q6H PRN IVP NAUSEA OR VOMITING; Start at 15:00 Bisacodyl (Dulcolax Supp) 10 mg DAILY PRN RECTAL CONSTIPATION; Start 11/18/16 at 15:00 Docusate Sodium (Colace) 100 mg Q12HR PO Last administered on 11/20/16 21:26; Start 11/18/16 at 15:00 Naloxone HCl (Narcan Inj) 0.4 mg UNSCH PRN IV SEE LABEL COMMENTS; Start at 15:00 Midazolam HCl (Versed Inj) 5 mg STK-MED ONCE .ROUTE Last administered on 18:58; Start 11/18/16 at 18:58; Stop 11/18/16 at 18:59; Status DC Fentanyl Citrate 250 mcg 250 mcg STK-MED ONCE .ROUTE Last administered on 18:59; Start 11/18/16 at 18:59; Stop 11/18/16 at 19:00; Status DC Pharmacy Profile Note 0 ml @ 0 mls/hr UNSCH OTHER ; Start 11/19/16 at 14:45 Vancomycin HCl/ Sodium Chloride (Vancomycin Inj/ NS 500 ml Inj) 515 ml @ 257.5 mls/ hr Q24H IV Last administered on 11/19/16 16:37; Start 11/19/16 at 16:00; Stop 11/20/16 at 11:25; Status DC Miscellaneous Information SPECIFIC LAB TO BE MELODY... ONCE ONCE .XX ; Start 11/21 at 23:45; Stop 11/21/16 at 23:46 Potassium Chloride (KCl) 40 meq ONCE ONCE PO Last administered on 11/20/16 09 :33; Start 11/20/16 at 09:30; Stop 11/20/16 at 09:31; Status DC Amlodipine Besylate 5 mg 5 mg DAILY PO Last administered on 11/20/16 09:36; Start 11/20/16 at 10:00 Vancomycin HCl/ Sodium Chloride (Vancomycin Inj/ NS 250 ml Inj) 250 ml @ 250 mls/hr Q12H IV Last administered on 11/21/16 00:55; Start 11/20/16 at 12:00 A/P Assessment and Plan A/P 1. Discitis - s/p lumbar spine biopsy- pathology pending. empirically started on IV Vancomycin- neurosurgery and ID following. 2. Hypertension ; started on Amlodipine 5 mg daily - will monitor and adjust the regimen as needed. 3. Hypokalemia -replaced. DVT prophylaxis with SCD's. Mariza Miller MD November 21, 2016 08:10
[2016-11-21] MEDS: SODIUM CHLORIDE 0.9% FLUSH 10 ML FLUSH IV FLUSH SCH ×2 (08:22→22:27)
[2016-11-21] MEDS: amLODIPine BESYLATE 5 MG TAB PO SCH (08:22)
[2016-11-21] MEDS: POTASSIUM CHLORIDE 8 MEQ CONTROLLED RELEASE TAB PO SCH (08:22)
[2016-11-21] MEDS: DOCUSATE SODIUM 100 MG CAP PO SCH ×2 (08:22→22:26)
[2016-11-21] MEDS: FUROSEMIDE 40 MG TAB PO SCH (08:23)
[2016-11-21] MEDS ORDERED: ZOLPIDEM TARTRATE 5 MG TAB PO PRN (09:00)
--- NOTE | 2016-11-21 12:36 | HHI.IDPN ---
Subjective Subjective Remarks ID COVERAGE Chart reviewed 81 year old female, has had chronic low back pain. Seen ortho as outpatient and had MRI which showed L2-L3 discitis. Underwent biopsy/aspiration of her back Notes reviewed No fever Back pain better One BC with Staph epi C/S from back negative ESR 20 CRP 3 Echo ok UA ok Antibiotics Vancomycin IV Lines PIV Past Medical History Mitral valve disease Hypertension. Cholecystectomy, Cataract surgery bilateral Right hip replacement, Bilateral knee replacements. Allergies: Coded Allergies: Actonel (Verified Allergy, Severe, Rash, 10/31/16) Keflex (Verified Allergy, Mild, EYES NOT OPENING, 10/31/16) Objective . Vital Signs Date Time Temp Pulse Resp B/P Pulse Ox O2 Delivery O2 Flow Rate FiO2 11/21/16 12:00 97.0 74 18 152/76 94 11/21/16 08:25 96 Nasal Cannula 2.00 11/21/16 08:00 97.2 72 16 138/86 96 11/21/16 05:45 97.4 73 19 142/79 94 11/21/16 00:30 97.7 80 18 125/90 98 11/20/16 20:10 97.4 75 18 136/78 95 11/20/16 16:39 96.8 91 18 131/75 95 11/20/16 11/20/16 11/21/16 15:00 23:00 07:00 Intake Total 360 ml 800 ml 975 ml Balance 360 ml 800 ml 975 ml Intake Oral 360 ml 800 ml 975 ml # Voids 3 2 4 # Bowel Movements 1 0 0 . Microbiology Date/Time Procedure Status Source Growth 11/18/16 16:05 Aerobic Blood Culture - Preliminary Resulted Blood Peripheral NO GROWTH IN 3 DAYS 11/18/16 16:05 Anaerobic Blood Culture - Preliminary Resulted Blood Peripheral NO GROWTH IN 3 DAYS 11/18/16 16:15 Aerobic Blood Culture - Preliminary Resulted Blood Peripheral Staphylococcus Epidermidis 11/18/16 16:15 Anaerobic Blood Culture - Preliminary Resulted Blood Peripheral NO GROWTH IN 3 DAYS 11/18/16 19:20 Gram Stain - Final Complete Abscess Other 11/18/16 19:20 Wound Culture - Final Complete Abscess Other NO GROWTH IN 72 HRS.--AEROBICALLY OR ... Imaging Last 72 hours Impressions SPECT Scan-Bone Nuclear Medicine 11/19/16 0000 Signed Impressions: Service Date/Time: Saturday, November 19, 2016 10:22 - CONCLUSION: There is intense uptake across the disc space at L3-4 this corresponds to the destructive abnormality seen on the CT source data. In the appropriate setting this would be most consistent with a discitis. There are some patchy areas of low grade uptake identified which are felt to be secondary to osteoarthritis. Pascual Merlos MD Needle Biopsy/Aspiration X-Ray 11/18/16 0000 Signed Impressions: Service Date/Time: November 18:22 - CONCLUSION: Uncomplicated needle biopsy of the L3-4 disc as above. Adair Peter MD Physical Exam GENERAL: She is awake and alert and oriented. Not in distress SKIN: Cool and dry, no generalized rash or ecchymoses HEENT: Extraocular movements grossly intact. Pupils reactive to light. No icterus. Oropharynx moist mucosa. No visible lesions. NECK: Supple. No adenopathy. No swelling. Not tender LUNGS: Clear to auscultation. No rales, rhonchi or wheezing HEART: Regular S1 and S2. No murmurs. No rubs. No gallops. ABDOMEN: Soft, nontender, not distended. No palpable masses. Bowel sounds present and normoactive BACK: Right lower back without tenderness on palpation. EXTREMITIES: No clubbing or cyanosis or edema. 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 Resection of the second toe on the right foot. No calf tenderness NEUROLOGIC: No gross focal findings. PSYCHIATRIC: The patient is calm and cooperative. LINE: PIV with no evidence of infection Assessment & Plan Remarks IMPRESSION L2-L3 discitis, ?infectious, inflammatory - ESR only 20 - had biopsy and C/S negative One out of 2 BC with Staph epi, ?significance - ?real vs contaminant Intractable back pain. RECOMMENDATIONS Continue Vancomycin. Monitor blood cultures. Monitor progress Pain control Dr Ehsan dominique in Celeste Rain MD November 21, 2016 12:36
--- NOTE | 2016-11-21 16:57 | HHI.NSPN ---
Exam Results Vital Signs Date Time Temp Pulse Resp B/P Pulse Ox O2 Delivery O2 Flow Rate FiO2 11/21/16 12:00 97.0 74 18 152/76 94 11/21/16 08:25 Nasal Cannula 2.00 Intake and Output 11/20/16 11/20/16 11/21/16 08:00 16:00 00:00 Intake Total 600 ml 360 ml 800 ml Output Total 800 ml Balance -200 ml 360 ml 800 ml Physical Examination AAOx3 Speech clear & appropriate Follows commands Back TTP to lumbar region Sensory light touch and motor exam intact in the lower extremities Lab, Micro, Other Results Microbiology Date/Time Procedure Status Source Growth 11/18/16 19:20 Gram Stain - Final Complete Abscess Other 11/18/16 19:20 Wound Culture - Final Complete Abscess Other NO GROWTH IN 72 HRS.--AEROBICALLY OR ... Medical Decision Making Impression and Plan Impression: Lumbar discitis. Initial culture results from biopsy negative at 72 hours. Plan: Discussed with the patient and family in the room. May mobilize out of bed as tolerated from neurosurgical standpoint. No further neurosurgical intervention planned at this point Patient may discharge when arrangements for antibiotics made and medically stable. She will have outpatient neurosurgery follow-up Pascual Sanchez MD November 21, 2016 16:57
[2016-11-21] MEDS ORDERED: PHARMACY ORDERED LAB ONE (23:45)
[2016-11-22] VITALS (8 sets, daily range): BP systolic 121–146; BP diastolic 66–90; PULSE 79–95; RESP 19–20; TEMP 97.3–98.8; O2SAT 90–96
[2016-11-22] MEDS: SODIUM CHLOR 0.9% 1000 ML INJ 1,000 ML IV SCH ×3 (00:41→20:50)
[2016-11-22] MEDS: VANCOMYCIN 1,000 MG/NS 250 ML IV SCH ×4 (00:42→11:40)
[2016-11-22 08:50] LABS: AUTOMATED NEUTROPHIL # 3.5 TH/MM3 (1.8-7.7); BASOPHIL # 0.1 TH/MM3 (0-0.2); BASOPHIL % 1.2 % (0.0-2.0); EOSINOPHIL # 0.2 TH/MM3 (0-0.4); EOSINOPHIL % 3.8 % (0.0-4.0); HEMATOCRIT 33.5 % (35.0-46.0); HEMO FLAGS DIFF FINAL; LYMPH % 21.9 % (9.0-44.0); LYMPHOCYTE # 1.2 TH/MM3 (1.0-4.8); MEAN CELL VOLUME 84.4 FL (80.0-100.0); MEAN CORPUSCULAR HEMOGLOBIN 27.5 PG (27.0-34.0); MEAN CORPUSCULAR HGB CONC 32.6 % (32.0-36.0); MONO % 7.3 % (0.0-8.0); NEUT % 65.8 % (16.0-70.0); PLATELET COUNT 227 TH/MM3 (150-450); RED BLOOD COUNT 3.97 MIL/MM3 (4.00-5.30); RED CELL DISTRIBUTION WIDTH 15.2 % (11.6-17.2); WHITE BLOOD COUNT 5.4 TH/MM3 (4.0-11.0)
[2016-11-22] MEDS: SODIUM CHLORIDE 0.9% FLUSH 10 ML FLUSH IV FLUSH SCH ×2 (09:00→21:00)
--- NOTE | 2016-11-22 09:20 | HHI.PR ---
Subjective Remarks in no acute distress. says that the pain is minimal when she's resting. no fever. at the bedside. Objective Vitals Vital Signs Date Time Temp Pulse Resp B/P Pulse Ox O2 Delivery O2 Flow Rate FiO2 11/22/16 07:50 97.3 95 20 146/90 93 11/22/16 06:00 97.8 80 19 135/66 96 11/22/16 00:30 98.8 82 19 130/76 96 11/21/16 20:30 97.7 80 18 133/77 95 11/21/16 20:08 Nasal Cannula 2.00 11/21/16 16:00 96.8 68 18 124/81 96 11/21/16 12:00 97.0 74 18 152/76 94 I/O 11/21/16 11/21/16 11/21/16 11/22/16 11/22/16 11/22/16 07:00 15:00 23:00 07:00 15:00 23:00 Intake Total 975 ml 480 ml 800 ml 800 ml Balance 975 ml 480 ml 800 ml 800 ml Intake Oral 975 ml 480 ml 800 ml 800 ml # Voids 4 4 2 4 # Bowel Movements 0 2 0 0 Result Diagram: 11/22/16 0754 11/19/16 0819 Imaging Last Impressions SPECT Scan-Bone Nuclear Medicine 11/19/16 0000 Signed Impressions: Service Date/Time: Saturday, November 19, 2016 10:22 - CONCLUSION: There is intense uptake across the disc space at L3-4 this corresponds to the destructive abnormality seen on the CT source data. In the appropriate setting this would be most consistent with a discitis. There are some patchy areas of low grade uptake identified which are felt to be secondary to osteoarthritis. Pascual Merlos MD Needle Biopsy/Aspiration X-Ray 11/18/16 0000 Signed Impressions: Service Date/Time: November 18:22 - CONCLUSION: Uncomplicated needle biopsy of the L3-4 disc as above. Adair Peter MD Objective Remarks GENERAL: This is a well-nourished, well-developed patient, in no apparent distress. CARDIOVASCULAR: Regular rate and regular rhythm without murmurs, gallops, or rubs. RESPIRATORY: Clear to auscultation. Breath sounds equal bilaterally. No wheezes , rales, or rhonchi. GASTROINTESTINAL: Abdomen soft, non-tender, nondistended. Normal, active bowel sounds MUSCULOSKELETAL: Extremities without clubbing, cyanosis, or edema. NEURO: Alert & Oriented x4 to person, place, time, situation. Moves all ext x4 Procedures lumbar spine biopsy. Medications and IVs Current Medications Furosemide (Lasix) 40 mg DAILY PO Last administered on 11/21/16 08:23; Start 11/19/16 at 09:00 Potassium Chloride 8 meq 8 meq DAILY PO Last administered on 11/21/16 08:22; Start 11/19/16 at 09:00 Sodium Chloride (NS 1000 ml Inj) 1,000 ml @ 100 mls/hr Q10H IV Last administered on 11/22/16 00:41; Start 11/18/16 at 15:00 Sodium Chloride (NS Flush) 2 ml UNSCH PRN IV FLUSH FLUSH AFTER USING IV ACCESS ; Start 11/18/16 at 15:00 Sodium Chloride (NS Flush) 2 ml BID IV FLUSH Last administered on 11/21/16 22: 27; Start 11/18/16 at 21:00 Acetaminophen (Tylenol) 650 mg Q4H PRN PO TEMP > 100.4; Start 11/18/16 at 15:00 Ondansetron HCl (Zofran Inj) 4 mg Q6H PRN IVP NAUSEA OR VOMITING; Start at 15:00 Bisacodyl (Dulcolax Supp) 10 mg DAILY PRN RECTAL CONSTIPATION; Start 11/18/16 at 15:00 Docusate Sodium (Colace) 100 mg Q12HR PO Last administered on 11/21/16 22:26; Start 11/18/16 at 15:00 Naloxone HCl (Narcan Inj) 0.4 mg UNSCH PRN IV SEE LABEL COMMENTS; Start at 15:00 Midazolam HCl (Versed Inj) 5 mg STK-MED ONCE .ROUTE Last administered on 18:58; Start 11/18/16 at 18:58; Stop 11/18/16 at 18:59; Status DC Fentanyl Citrate 250 mcg 250 mcg STK-MED ONCE .ROUTE Last administered on 18:59; Start 11/18/16 at 18:59; Stop 11/18/16 at 19:00; Status DC Pharmacy Profile Note 0 ml @ 0 mls/hr UNSCH OTHER ; Start 11/19/16 at 14:45 Vancomycin HCl/ Sodium Chloride (Vancomycin Inj/ NS 500 ml Inj) 515 ml @ 257.5 mls/ hr Q24H IV Last administered on 11/19/16 16:37; Start 11/19/16 at 16:00; Stop 11/20/16 at 11:25; Status DC Miscellaneous Information SPECIFIC LAB TO BE MELODY... ONCE ONCE .XX Last administered on 11/22/16 00:44; Start 11/21/16 at 23:45; Stop 11/21/16 at 23:46 ; Status DC Potassium Chloride (KCl) 40 meq ONCE ONCE PO Last administered on 11/20/16 09 :33; Start 11/20/16 at 09:30; Stop 11/20/16 at 09:31; Status DC Amlodipine Besylate 5 mg 5 mg DAILY PO Last administered on 11/21/16 08:22; Start 11/20/16 at 10:00 Vancomycin HCl/ Sodium Chloride (Vancomycin Inj/ NS 250 ml Inj) 250 ml @ 250 mls/hr Q12H IV Last administered on 11/22/16 00:42; Start 11/20/16 at 12:00 Zolpidem Tartrate (Ambien) 5 mg HS PRN PO INSOMNIA; Start 11/21/16 at 09:00 A/P Assessment and Plan A/P 1. Discitis - s/p lumbar spine biopsy- pathology pending. empirically started on IV Vancomycin- neurosurgery and ID following. consult PT. 2. Hypertension ; started on Amlodipine 5 mg daily - will monitor and adjust the regimen as needed. 3. Hypokalemia -replaced. DVT prophylaxis with SCD's. Discharge Planning dc planning- pending PT evaluation and ID recommendations. Mariza Miller MD November 22, 2016 09:20
[2016-11-22] MEDS: FUROSEMIDE 40 MG TAB PO SCH (09:50)
[2016-11-22] MEDS: POTASSIUM CHLORIDE 8 MEQ CONTROLLED RELEASE TAB PO SCH (09:50)
[2016-11-22] MEDS: amLODIPine BESYLATE 5 MG TAB PO SCH (09:50)
[2016-11-22] MEDS: DOCUSATE SODIUM 100 MG CAP PO SCH ×2 (09:50→20:50)
--- NOTE | 2016-11-22 14:55 | HHI.NSPN ---
(Daisy Agustin) Note Status Status: Progress Note (Daisy Agustin) Interval History Interval History This is a 81 y/o female with chronic low back pain and chronic left lower quadrant pain. Apparently her pain has been getting worse for the past two months. She's had fairly extensive workup including abdominal ultrasound and MRI of her back and plain films. She was sent to [place] emergency department by her orthopedic surgeon after an MRI which reported evidence of discitis at L3-L4. Her pain is very severe and aggravated by any movement she denies any gurjit focal weakness. No acute injury. No falls she denies any incontinence of stool or urine or gurjit sensory loss. She has suffer a recent urinary tract infection. She has history of Mitral valve disease. An outpatient MRI has been obtained. Neurosurgical consultation was requested. 11/19: lumbar pain when she moves, eating her lunch, cultures pending. 11/22: neg lumbar cultures, c/o of lumbar pain only with movement. she is not interested in surgery. (Daisy Agustin) Labs, Micro, & Vital Signs Results Date Time Temp Pulse Resp B/P Pulse Ox O2 Delivery O2 Flow Rate FiO2 11/22/16 11:45 98.0 79 20 134/79 96 11/22/16 09:49 90 21 11/22/16 07:50 97.3 95 20 146/90 93 11/22/16 06:00 97.8 80 19 135/66 96 11/22/16 00:30 98.8 82 19 130/76 96 11/21/16 20:30 97.7 80 18 133/77 95 11/21/16 20:08 Nasal Cannula 2.00 11/21/16 16:00 96.8 68 18 124/81 96 11/22/16 07:00 Intake Total 2080 ml Balance 2080 ml Constitutional Vital Signs Date Time Temp Pulse Resp B/P Pulse Ox O2 Delivery O2 Flow Rate FiO2 11/22/16 11:45 98.0 79 20 134/79 96 11/22/16 09:49 90 21 11/22/16 07:50 97.3 95 20 146/90 93 11/22/16 06:00 97.8 80 19 135/66 96 11/22/16 00:30 98.8 82 19 130/76 96 11/21/16 20:30 97.7 80 18 133/77 95 11/21/16 20:08 Nasal Cannula 2.00 11/21/16 16:00 96.8 68 18 124/81 96 11/22/16 07:00 Intake Total 2080 ml Balance 2080 ml (Daisy Agustin) Review of Systems/Exam Exam Ms. Villanueva is alert, in no apparent distress in bed. Follows commands well. Motor: 5/5 in lower extremities Sensory: intact to light touch in legs b/l Plantars downgoing b/l DTRs: trace in knees and ankles. No ankle clonu (Daisy Agustin) Medications Current Medications Current Medications Medications (Trade) Dose Ordered Sig/Fabby Route PRN Reason Start Time Stop Time Status Last Admin Dose Admin Furosemide (Lasix) 40 mg DAILY PO 11/19/16 09:00 11/22/16 09:50 Potassium Chloride 8 meq 8 meq DAILY PO 11/19/16 09:00 11/22/16 09:50 Sodium Chloride (NS 1000 ml Inj) 1,000 ml @ 100 mls/hr Q10H IV 11/18/16 15:00 11/22/16 14:46 Sodium Chloride (NS Flush) 2 ml UNSCH PRN IV FLUSH FLUSH AFTER USING IV ACCESS 11/18/16 15:00 Sodium Chloride (NS Flush) 2 ml BID IV FLUSH 11/18/16 21:00 11/21/16 22:27 Acetaminophen (Tylenol) 650 mg Q4H PRN PO TEMP > 100.4 11/18/16 15:00 Ondansetron HCl (Zofran Inj) 4 mg Q6H PRN IVP NAUSEA OR VOMITING 11/18/16 15:00 Bisacodyl (Dulcolax Supp) 10 mg DAILY PRN RECTAL CONSTIPATION 11/18/16 15:00 Docusate Sodium (Colace) 100 mg Q12HR PO 11/18/16 15:00 11/22/16 09:50 Naloxone HCl 0.4 mg 0.4 mg UNSCH PRN IV SEE LABEL COMMENTS 11/18/16 15:00 Pharmacy Profile Note (Vancomycin Consult Pharmacy) 0 ml @ 0 mls/hr UNSCH OTHER 11/19/16 14:45 Amlodipine Besylate 5 mg 5 mg DAILY PO 11/20/16 10:00 11/22/16 09:50 Vancomycin HCl/ Sodium Chloride (Vancomycin Inj/ NS 250 ml Inj) 250 ml @ 250 mls/hr Q12H IV 11/20/16 12:00 11/22/16 11:40 Zolpidem Tartrate (Ambien) 5 mg HS PRN PO INSOMNIA 11/21/16 09:00 Miscellaneous Information SPECIFIC LAB TO BE MELODY... ONCE ONCE .XX 11/23/16 11:45 11/23/16 11:46 (Daisy Agustin) Medical Decision Making MDM Remarks 81 y/o female presntes with intractable lumbar pain, L3-4 discitis (Daisy Agustin) Plan Plan Remarks continue nonoperative mgt, cont antibiotic treatment per ID (Daisy Agustin) Attending Statement Continue neuro checks in a serial fashion. Rec IV ABX until full culture results Respiratory. pulmonary toilette, nasotracheal suction, and breathing treatments with nebulizers. PT and OT Nutrition. Oral diet Endocrine. Monitor serial Acu checks and SSI for tight control ID awaiting cultures. Recommend to start empiric ABX GERD. Protonix for stress ulcer prophylaxis Markel hose and SCD's for DVT prophylaxis The exam, history, and the medical decision-making described in the above note were completed with the assistance of the mid-level provider. I reviewed and agree with the findings presented. I attest that I had a [id number] encounter with the patient on the same day, and personally performed and documented my assessment and findings in the medical record. (Jairon Judge MD) Daisy Agustin November 22, 2016 14:55 Jairon Judge MD November 29, 2016 12:34
--- NOTE | 2016-11-22 16:31 | HHI.IDPN ---
Note Infectious Disease Note Patient feels okay. No distress. Continues to have back pain but says it is baerable now. Sitting in bedside chair. Afebrile. No other complaints. Wound culture has no growth. Blood culture 1 bottle has staph epidermidis. 2D ECHO without vegetation. PAST MEDICAL HISTORY 1. Mitral valve disease 2. Hypertension. 3. Cholecystectomy, 4. Cataract surgery bilateral 5. Right hip replacement, 6. Bilateral knee replacements. ALLERGIES KEFLEX - CAUSED DIFFICULTY WITH VISION. ACTONEL ANTIBIOTIC: Vancomycin. OBJECTIVE: Vital Signs Date Time Temp Pulse Resp B/P Pulse Ox O2 Delivery O2 Flow Rate FiO2 11/22/16 11:45 98.0 79 20 134/79 96 11/22/16 09:49 90 21 11/22/16 07:50 97.3 95 20 146/90 93 11/22/16 06:00 97.8 80 19 135/66 96 11/22/16 00:30 98.8 82 19 130/76 96 11/21/16 20:30 97.7 80 18 133/77 95 11/21/16 20:08 Nasal Cannula 2.00 11/21/16 11/21/16 11/22/16 15:00 23:00 07:00 Intake Total 480 ml 800 ml 800 ml Balance 480 ml 800 ml 800 ml Intake Oral 480 ml 800 ml 800 ml # Voids 4 2 4 # Bowel Movements 2 0 0 Laboratory Tests Test 11/22/16 07:54 White Blood Count 5.4 TH/MM3 Red Blood Count 3.97 MIL/MM3 Hemoglobin 10.9 GM/DL Hematocrit 33.5 % Mean Corpuscular Volume 84.4 FL Mean Corpuscular Hemoglobin 27.5 PG Mean Corpuscular Hemoglobin 32.6 % Concent Red Cell Distribution Width 15.2 % Platelet Count 227 TH/MM3 Mean Platelet Volume 7.7 FL Neutrophils (%) (Auto) 65.8 % Lymphocytes (%) (Auto) 21.9 % Monocytes (%) (Auto) 7.3 % Eosinophils (%) (Auto) 3.8 % Basophils (%) (Auto) 1.2 % Neutrophils # (Auto) 3.5 TH/MM3 Lymphocytes # (Auto) 1.2 TH/MM3 Monocytes # (Auto) 0.4 TH/MM3 Eosinophils # (Auto) 0.2 TH/MM3 Basophils # (Auto) 0.1 TH/MM3 CBC Comment DIFF FINAL Differential Comment Laboratory Tests Test 11/18/16 11/19/16 13:40 08:19 White Blood Count 6.5 TH/MM3 5.2 TH/MM3 Red Blood Count 4.28 MIL/MM3 3.35 MIL/MM3 Hemoglobin 11.8 GM/DL 9.3 GM/DL Hematocrit 36.4 % 28.5 % Mean Corpuscular Volume 85.2 FL 84.9 FL Mean Corpuscular Hemoglobin 27.5 PG 27.7 PG Mean Corpuscular Hemoglobin 32.3 % 32.6 % Concent Red Cell Distribution Width 15.3 % 15.5 % Platelet Count 222 TH/MM3 189 TH/MM3 Mean Platelet Volume 7.9 FL 7.8 FL Neutrophils (%) (Auto) 73.0 % 70.1 % Lymphocytes (%) (Auto) 18.2 % 20.4 % Monocytes (%) (Auto) 6.2 % 6.4 % Eosinophils (%) (Auto) 1.8 % 2.1 % Basophils (%) (Auto) 0.8 % 1.0 % Neutrophils # (Auto) 4.8 TH/MM3 3.6 TH/MM3 Lymphocytes # (Auto) 1.2 TH/MM3 1.1 TH/MM3 Monocytes # (Auto) 0.4 TH/MM3 0.3 TH/MM3 Eosinophils # (Auto) 0.1 TH/MM3 0.1 TH/MM3 Basophils # (Auto) 0.0 TH/MM3 0.0 TH/MM3 CBC Comment DIFF FINAL DIFF FINAL Differential Comment Erythrocyte Sedimentation Rate 20 mm/hr Laboratory Tests Test 11/18/16 11/19/16 13:40 08:19 Sodium Level 140 MEQ/L 143 MEQ/L Potassium Level 4.2 MEQ/L 3.4 MEQ/L Chloride Level 105 MEQ/L 109 MEQ/L Carbon Dioxide Level 26.8 MEQ/L 25.3 MEQ/L Anion Gap 8 MEQ/L 9 MEQ/L Blood Urea Nitrogen 15 MG/DL 10 MG/DL Creatinine 0.67 MG/DL 0.51 MG/DL Estimat Glomerular Filtration 84 ML/MIN 115 ML/MIN Rate Random Glucose 93 MG/DL 77 MG/DL Calcium Level 9.6 MG/DL 8.6 MG/DL C-Reactive Protein 3.00 MG/DL Total Bilirubin 0.4 MG/DL Direct Bilirubin 0.1 MG/DL Indirect Bilirubin 0.3 MG/DL Aspartate Amino Transf 22 U/L (AST/SGOT) Alanine Aminotransferase 16 U/L (ALT/SGPT) Alkaline Phosphatase 70 U/L Total Protein 5.4 GM/DL Albumin 2.5 GM/DL PHYSICAL EXAMINATION GENERAL: No She is awake and alert and oriented. HEENT: No icterus. Oropharynx moist mucosa. No visible lesions. NECK: Supple. No adenopathy. No swelling. LUNGS: Clear to auscultation. HEART: Regular S1 and S2. No murmurs. No rubs. No gallops. ABDOMEN: Soft, nontender. No palpable masses. Right lower back without tenderness on palpation. EXTREMITIES: No clubbing or cyanosis or edema. SKIN: No rash. NEUROLOGIC: No gross focal findings. PSYCHIATRIC: The patient is calm and cooperative. ASSESSMENT 1. Diskitis of the lumbar spine. Post biopsy. Culture has no growth. 2. Intractable back pain. 3. Positive blood culture x 1 bottle with staph epidermis. Very likely contaminant. RECOMMENDATIONS Continue Vancomycin empiric. If surgery is not anticipated. she can be treated with IV Vancomycin x 6 weeks empirically and follow up with infectious disease and neurosurgery outpatient. Discussed with Dr. Miller. PIC will be needed for outpatient antibiotics. Brian Moser MD November 22, 2016 16:31
--- NOTE | 2016-11-22 16:33 | HHI.FF ---
Infusion Therapy Location of Infusion Therapy: Home Health Care IV Infusion Order Patient Information Patient Weight 73 kg Diagnosis: (1) Discitis of lumbar region Coded Allergies: Actonel (Verified Allergy, Severe, Rash, 10/31/16) Keflex (Verified Allergy, Mild, EYES NOT OPENING, 10/31/16) Administer Medication Vancomycin 1.5 grams IV q 24 hours Stop Treatment: Jan 03, 2017 Additional Information Venous access: PICC Line Additional Instructions [x] Peripheral flush and dressing changes per protocol [x] Implanted port and central journey lineman: * Implanted port: 10 ml Normal Saline followed by 5 ml Heparin 100 units/ml Heparin flush after each use and monthly to maintain. [] May leave port accessed during therapy. [] May leave peripheral site accessed for duration of therapy. [x] If patient has SOB or respiratory distress, check oxygen saturation. If less than 90% or clinical signs of respiratory distress, administer oxygen at 2 L/min. via nasal cannula and notify physician. [x] Anaphylaxis/Reaction orders: * Stop infusion. * Keep IV line open with saline flush. * Notify physician. * Monitor vital signs every 15 minutes until symptoms resolve. * Check Oxygen saturation; Oxygen at 2 L/min. via nasal cannula if less than 90% or clinical signs of respiratory distress. * Administer diphenhydramine (Benadryl) 25 mg IV STAT, (unless patient has received as pre-med). May repeat once, if necessary. * Solu-Cortef 250 mg IVP over 30-60 seconds, use 100 mg vials for each dissolution. * Epinephrine (1mg/1 ml) 0.3 mg subcutaneously or IVP now with any signs of respiratory distress. * Check with physician for new additional pre-med orders if patient is re- challenged or re-treated. [x] May remove PICC line when treatment complete, after confirming with Physician. [x] If the patient is admitted to the hospital, the ED, or transferred via [facility] , complete transfer form including medication reconciliation order sheet. Laboratory Tests Weekly Labs: BMP, SED Rate, Vancomycin Trough Additional Information Vancomycin trough on 11/26/16. Appointment with Dr. Milagro Rosenbaum 1 week after discharge. Send lab results to Dr Milagro Rosenbaum and Dr Moser. Brian Moser MD November 22, 2016 16:33
[2016-11-23] MEDS: VANCOMYCIN 1,000 MG/NS 250 ML IV SCH ×4 (00:41→12:45)
[2016-11-23 00:55] VITALS: BP 147/75; PULSE 75; RESP 20; TEMP 98.1; O2SAT 95
[2016-11-23] MEDS: SODIUM CHLOR 0.9% 1000 ML INJ 1,000 ML IV SCH ×2 (05:44→15:00)
[2016-11-23 05:45] VITALS: BP 146/78; PULSE 84; RESP 20; TEMP 97.4; O2SAT 94
[2016-11-23 09:02] VITALS: BP 152/84; PULSE 72; RESP 18; TEMP 97.4; O2SAT 96
[2016-11-23] MEDS: SODIUM CHLORIDE 0.9% FLUSH 10 ML FLUSH IV FLUSH SCH (09:13)
[2016-11-23] MEDS: FUROSEMIDE 40 MG TAB PO SCH (09:14)
[2016-11-23] MEDS: POTASSIUM CHLORIDE 8 MEQ CONTROLLED RELEASE TAB PO SCH (09:14)
[2016-11-23] MEDS: DOCUSATE SODIUM 100 MG CAP PO SCH (09:15)
[2016-11-23] MEDS: amLODIPine BESYLATE 5 MG TAB PO SCH (09:15)
[2016-11-23 10:22] VITALS: O2SAT 94
[2016-11-23 11:40] VITALS: BP 140/88; PULSE 78; RESP 17; TEMP 98.9; O2SAT 94
--- NOTE | 2016-11-23 11:40 | HHI.PR ---
Subjective Remarks in no acute distress. pain is controlled. no fever. no new complaints. wants to go home today. Objective Vitals Vital Signs Date Time Temp Pulse Resp B/P Pulse Ox O2 Delivery O2 Flow Rate FiO2 11/23/16 09:02 97.4 72 18 152/84 96 11/23/16 05:45 97.4 84 20 146/78 94 11/23/16 00:55 98.1 75 20 147/75 95 11/22/16 20:57 97.4 83 20 138/85 94 11/22/16 17:54 95 21 11/22/16 15:55 97.4 94 20 121/84 95 11/22/16 11:45 98.0 79 20 134/79 96 I/O 11/22/16 11/22/16 11/22/16 11/23/16 11/23/16 11/23/16 06:59 14:59 22:59 06:59 14:59 22:59 Intake Total 800 ml 1435 ml Balance 800 ml 1435 ml Intake Oral 800 ml IV Total 1435 ml # Voids 4 8 2 # Bowel Movements 0 0 Result Diagram: 11/22/16 0754 11/19/16 0819 Imaging Last Impressions SPECT Scan-Bone Nuclear Medicine 11/19/16 0000 Signed Impressions: Service Date/Time: Saturday, November 19, 2016 10:22 - CONCLUSION: There is intense uptake across the disc space at L3-4 this corresponds to the destructive abnormality seen on the CT source data. In the appropriate setting this would be most consistent with a discitis. There are some patchy areas of low grade uptake identified which are felt to be secondary to osteoarthritis. Pascual Merlos MD Needle Biopsy/Aspiration X-Ray 11/18/16 0000 Signed Impressions: Service Date/Time: November 18:22 - CONCLUSION: Uncomplicated needle biopsy of the L3-4 disc as above. Adair Peter MD Objective Remarks GENERAL: This is a well-nourished, well-developed patient, in no apparent distress. CARDIOVASCULAR: Regular rate and regular rhythm without murmurs, gallops, or rubs. RESPIRATORY: Clear to auscultation. Breath sounds equal bilaterally. No wheezes , rales, or rhonchi. GASTROINTESTINAL: Abdomen soft, non-tender, nondistended. Normal, active bowel sounds MUSCULOSKELETAL: Extremities without clubbing, cyanosis, or edema. NEURO: Alert & Oriented x4 to person, place, time, situation. Moves all ext x4 Procedures lumbar spine biopsy. Medications and IVs Current Medications Furosemide (Lasix) 40 mg DAILY PO Last administered on 11/23/16 09:14; Start 11/19/16 at 09:00 Potassium Chloride 8 meq 8 meq DAILY PO Last administered on 11/23/16 09:14; Start 11/19/16 at 09:00 Sodium Chloride (NS 1000 ml Inj) 1,000 ml @ 100 mls/hr Q10H IV Last administered on 11/23/16 05:44; Start 11/18/16 at 15:00 Sodium Chloride (NS Flush) 2 ml UNSCH PRN IV FLUSH FLUSH AFTER USING IV ACCESS ; Start 11/18/16 at 15:00 Sodium Chloride (NS Flush) 2 ml BID IV FLUSH Last administered on 11/23/16 09: 13; Start 11/18/16 at 21:00 Acetaminophen (Tylenol) 650 mg Q4H PRN PO TEMP > 100.4; Start 11/18/16 at 15:00 Ondansetron HCl (Zofran Inj) 4 mg Q6H PRN IVP NAUSEA OR VOMITING; Start at 15:00 Bisacodyl (Dulcolax Supp) 10 mg DAILY PRN RECTAL CONSTIPATION; Start 11/18/16 at 15:00 Docusate Sodium (Colace) 100 mg Q12HR PO Last administered on 11/23/16 09:15; Start 11/18/16 at 15:00 Naloxone HCl (Narcan Inj) 0.4 mg UNSCH PRN IV SEE LABEL COMMENTS; Start at 15:00 Midazolam HCl (Versed Inj) 5 mg STK-MED ONCE .ROUTE Last administered on 18:58; Start 11/18/16 at 18:58; Stop 11/18/16 at 18:59; Status DC Fentanyl Citrate 250 mcg 250 mcg STK-MED ONCE .ROUTE Last administered on 18:59; Start 11/18/16 at 18:59; Stop 11/18/16 at 19:00; Status DC Pharmacy Profile Note 0 ml @ 0 mls/hr UNSCH OTHER ; Start 11/19/16 at 14:45 Vancomycin HCl/ Sodium Chloride (Vancomycin Inj/ NS 500 ml Inj) 515 ml @ 257.5 mls/ hr Q24H IV Last administered on 11/19/16 16:37; Start 11/19/16 at 16:00; Stop 11/20/16 at 11:25; Status DC Miscellaneous Information SPECIFIC LAB TO BE MELODY... ONCE ONCE .XX Last administered on 11/22/16 00:44; Start 11/21/16 at 23:45; Stop 11/21/16 at 23:46 ; Status DC Potassium Chloride (KCl) 40 meq ONCE ONCE PO Last administered on 11/20/16 09 :33; Start 11/20/16 at 09:30; Stop 11/20/16 at 09:31; Status DC Amlodipine Besylate 5 mg 5 mg DAILY PO Last administered on 11/23/16 09:15; Start 11/20/16 at 10:00 Vancomycin HCl/ Sodium Chloride (Vancomycin Inj/ NS 250 ml Inj) 250 ml @ 250 mls/hr Q12H IV Last administered on 11/23/16 00:41; Start 11/20/16 at 12:00 Zolpidem Tartrate (Ambien) 5 mg HS PRN PO INSOMNIA; Start 11/21/16 at 09:00 Miscellaneous Information SPECIFIC LAB TO BE MELODY... ONCE ONCE .XX ; Start 11/23 at 11:45; Stop 11/23/16 at 11:46 A/P Assessment and Plan A/P 1. Discitis - s/p lumbar spine biopsy- pathology pending. empirically started on IV Vancomycin- plan for six weeks - per ID. 2. Hypertension ; started on Amlodipine 5 mg daily - f/u as outpatient. 3. Hypokalemia -replaced. DVT prophylaxis with SCD's. Discharge Planning dc home likely later today after PICC line is in place and outpatient Abx has been arranged. see med list. f/u; pcp, ID and neurosurgery. d/w the patient. d/w the neurosurgery. time spent 35 min. Mariza Miller MD November 23, 2016 11:40
[2016-11-23] MEDS ORDERED: AMLO5 PO (11:41)
[2016-11-23] MEDS ORDERED: PERC5TAB12 PO (11:41)
--- NOTE | 2016-11-23 11:41 | HHI.DCPOC ---
Discharge Care Plan Diagnosis: (1) Discitis of lumbar region Your Health Problems Are: Difficulty with ADL Chronic Pain Goals to Promote Your Health * To prevent worsening of your condition and complications * To maintain your health at the optimal level Directions to Meet Your Goals Take your medications as prescribed Follow your dietary instruction Follow activity as directed Keep your appointments as scheduled Take your immunizations and boosters as scheduled If your symptoms worsen call your PCP, if no PCP go to Urgent Care Center or Emergency Room Smoking is Dangerous to Your Health. Avoid second hand smoke Call the 24-hour hour crisis hotline for domestic abuse at Mariza Miller MD November 23, 2016 11:41
--- NOTE | 2016-11-23 11:42 | HHI.DS ---
Discharge Summary Admission Date November 18, 2016 at 14:43 Discharge Date: November 23, 2016 Admitting Diagnosis diskitis of L3 (1) Discitis of lumbar region ICD Code: M46.46 Diagnosis: Principal Procedures lumbar spine biopsy. Brief History - From Admission This is a pleasant 81 y/o Female with chronic low back pain and chronic left lower quadrant pain, for one to two months, She's had fairly extensive workup including abdominal ultrasound and MRI of her back and plain films. She is seen orthopedic follow-up as well as her regular doctor for this multiple times. She received a call today from orthopedist Dr. Horton who according to the patient told her to go to the emergency room. The patient really doesn't know why she was sent here and she says she didn't ask him. Pain is chronic and not unchanged today. No acute injury. No new neurologic deficit. after contacted Doctor Sol she was sent To ER due to findings in new MRI of the spine. as we know she has Hypertension will continue Home medicines. CBC/BMP: 11/22/16 0754 11/19/16 0819 Significant Findings Laboratory Tests Test 11/22/16 11/22/16 00:20 07:54 Vancomycin Level Trough 18.0 MCG/ML (5.0-10.0) Red Blood Count 3.97 MIL/MM3 (4.00-5.30) Hemoglobin 10.9 GM/DL (11.6-15.3) Hematocrit 33.5 % (35.0-46.0) Imaging Last Impressions SPECT Scan-Bone Nuclear Medicine 11/19/16 0000 Signed Impressions: Service Date/Time: Saturday, November 19, 2016 10:22 - CONCLUSION: There is intense uptake across the disc space at L3-4 this corresponds to the destructive abnormality seen on the CT source data. In the appropriate setting this would be most consistent with a discitis. There are some patchy areas of low grade uptake identified which are felt to be secondary to osteoarthritis. Pascual Merlos MD Needle Biopsy/Aspiration X-Ray 11/18/16 0000 Signed Impressions: Service Date/Time: November 18:22 - CONCLUSION: Uncomplicated needle biopsy of the L3-4 disc as above. Adair Peter MD PE at Discharge GENERAL: This is a well-nourished, well-developed patient, in no apparent distress. CARDIOVASCULAR: Regular rate and regular rhythm without murmurs, gallops, or rubs. RESPIRATORY: Clear to auscultation. Breath sounds equal bilaterally. No wheezes , rales, or rhonchi. GASTROINTESTINAL: Abdomen soft, non-tender, nondistended. Normal, active bowel sounds MUSCULOSKELETAL: Extremities without clubbing, cyanosis, or edema. NEURO: Alert & Oriented x4 to person, place, time, situation. Moves all ext x4 Hospital Course 1. Discitis - s/p lumbar spine biopsy- pathology pending. empirically started on IV Vancomycin- plan for six weeks - per ID. 2. Hypertension ; started on Amlodipine 5 mg daily - f/u as outpatient. 3. Hypokalemia -replaced. Pt Condition on Discharge: Fair Discharge Disposition: Disch w/ Home Health Serv Discharge Time: > 30 minutes Discharge Instructions DIET: Follow Instructions for: Heart Healthy Diet Activities you can perform: Regular-No Restrictions Follow up Referrals: Infectious Disease Neurosurgery PCP Follow-up New Medications: Amlodipine (Norvasc) 5 Mg Tab 5 MG PO DAILY hypertension Days 30 Ref 0 TAB Continued Medications: Furosemide (Lasix) 40 Mg Tab 40 MG PO DAILY #30 Ref 0 TAB Oxycodone-Acetaminophen (Percocet) 5-325 mg Tab 1 TAB PO Q6H PRN PAIN #14 Ref 0 TAB (This prescription has been renewed) Potassium Chloride ER (Klor-Con 8) 8 Meq Tab 8 MEQ PO DAILY Electrolyte Replacement #30 Ref 0 TAB Mariza Miller MD November 23, 2016 11:42
[2016-11-23] MEDS ORDERED: PHARMACY ORDERED LAB ONE (11:45)
--- NOTE | 2016-11-23 11:46 | HHI.FF ---
Face to Face Verification Diagnosis: (1) Discitis of lumbar region Physical Therapy Order: Evaluate and Treat Home Health Nursing Order: Medical education Signs/symptoms of disease process IV medication administration I have seen patient Macarena Villanueva on 11/23/16. My clinical findings support the need for the requested home health care services because: Ltd mobility - disease progression I certify that my clinical findings support that this patient is homebound because: Unsteady gait/balance Mariza Miller MD November 23, 2016 11:46
--- NOTE | 2016-11-23 12:19 | HHI.IDPN ---
Note Infectious Disease Note Patient feels okay. No distress. Sitting in bedside chair. Eating. Notes back is mildly sore. Afebrile. Wound culture has no growth. Blood culture 1 bottle has staph epidermidis. 2D ECHO without vegetation. PAST MEDICAL HISTORY 1. Mitral valve disease 2. Hypertension. 3. Cholecystectomy, 4. Cataract surgery bilateral 5. Right hip replacement, 6. Bilateral knee replacements. ALLERGIES KEFLEX - CAUSED DIFFICULTY WITH VISION. ACTONEL ANTIBIOTIC: Vancomycin. OBJECTIVE: Vital Signs Date Time Temp Pulse Resp B/P Pulse Ox O2 Delivery O2 Flow Rate FiO2 11/23/16 11:40 98.9 78 17 140/88 94 11/23/16 09:02 97.4 72 18 152/84 96 11/23/16 05:45 97.4 84 20 146/78 94 11/23/16 00:55 98.1 75 20 147/75 95 11/22/16 20:57 97.4 83 20 138/85 94 11/22/16 17:54 95 21 11/22/16 15:55 97.4 94 20 121/84 95 11/22/16 11/22/16 11/23/16 15:00 23:00 07:00 Intake Total 1435 ml Balance 1435 ml IV Total 1435 ml # Voids 8 2 # Bowel Movements 0 Laboratory Tests Test 11/22/16 07:54 White Blood Count 5.4 TH/MM3 Red Blood Count 3.97 MIL/MM3 Hemoglobin 10.9 GM/DL Hematocrit 33.5 % Mean Corpuscular Volume 84.4 FL Mean Corpuscular Hemoglobin 27.5 PG Mean Corpuscular Hemoglobin 32.6 % Concent Red Cell Distribution Width 15.2 % Platelet Count 227 TH/MM3 Mean Platelet Volume 7.7 FL Neutrophils (%) (Auto) 65.8 % Lymphocytes (%) (Auto) 21.9 % Monocytes (%) (Auto) 7.3 % Eosinophils (%) (Auto) 3.8 % Basophils (%) (Auto) 1.2 % Neutrophils # (Auto) 3.5 TH/MM3 Lymphocytes # (Auto) 1.2 TH/MM3 Monocytes # (Auto) 0.4 TH/MM3 Eosinophils # (Auto) 0.2 TH/MM3 Basophils # (Auto) 0.1 TH/MM3 CBC Comment DIFF FINAL Differential Comment PHYSICAL EXAMINATION GENERAL: Awake and alert and oriented. HEENT: No icterus. Oropharynx moist mucosa. No visible lesions. NECK: Supple. No adenopathy. No swelling. LUNGS: Clear to auscultation. HEART: Regular S1 and S2. No murmurs. No rubs. No gallops. ABDOMEN: Soft. Right lower back without tenderness on palpation. EXTREMITIES: No clubbing or cyanosis or edema. SKIN: No rash. NEUROLOGIC: No gross focal findings. PSYCHIATRIC: The patient is calm and cooperative. ASSESSMENT 1. Diskitis of the lumbar spine. Post biopsy. Culture has no growth. 2. Intractable back pain. 3. Positive blood culture x 1 bottle with staph epidermis. Very likely contaminant. RECOMMENDATIONS Continue Vancomycin empiric. IV Vancomycin x 6 weeks. Follow up with infectious disease and PIC line. Antibiotics ordered on Infusion form. Can be discharge when outpatient antibiotic arrangements are made. Brian Moser MD November 23, 2016 12:19
[2016-11-23] MEDS ORDERED: SODIUM CHLORIDE 0.9% FLUSH 10 ML FLUSH IV FLUSH PRN (15:30)
--- NOTE | 2016-11-23 15:55 | RADRPT ---
EXAM DATE/TIME: 11/23/2016 15:21 [place] COMPARISON: No previous studies available for comparison. INDICATIONS : Post PICC line placement. MEDICAL HISTORY : Hypertension. SURGICAL HISTORY : Cholecystectomy. ENCOUNTER: Initial ACUITY: 1 day PAIN SCORE: 0/10 LOCATION: Bilateral chest FINDINGS: The cardiac silhouette is enlarged in transverse diameter. The lungs are free of acute parenchymal op acity. No effusions are identified. A PICC line is in place via left-sided approach with its tip in t he region of the superior vena cava. CONCLUSION: 1. Uncomplicated PICC line placement. Karel Dobson MD on November 23, 2016 at 15:53 Board Certified Radiologist. This report was verified electronically.
[2016-11-23 16:53] VITALS: BP 127/76; PULSE 74; RESP 19; TEMP 97.8; O2SAT 94
--- NOTE | 2016-11-23 17:04 | HHI.NSPN ---
(Daisy Agustin) Note Status Status: Progress Note (Daisy Agustin) Interval History Interval History This is a 81 y/o female with chronic low back pain and chronic left lower quadrant pain. Apparently her pain has been getting worse for the past two months. She's had fairly extensive workup including abdominal ultrasound and MRI of her back and plain films. She was sent to [facility] emergency department by her orthopedic surgeon after an MRI which reported evidence of discitis at L3-L4. Her pain is very severe and aggravated by any movement she denies any gurjit focal weakness. No acute injury. No falls she denies any incontinence of stool or urine or gurjit sensory loss. She has suffer a recent urinary tract infection. She has history of Mitral valve disease. An outpatient MRI has been obtained. Neurosurgical consultation was requested. 11/19: lumbar pain when she moves, eating her lunch, cultures pending. 11/22: neg lumbar cultures, c/o of lumbar pain only with movement. she is not interested in surgery. 11/23: feeling a bit better, tolerated walking with walker yesterday, eager for discharge (Daisy Agustin) Labs, Micro, & Vital Signs Results Date Time Temp Pulse Resp B/P Pulse Ox O2 Delivery O2 Flow Rate FiO2 11/23/16 16:53 97.8 74 19 127/76 94 11/23/16 11:40 98.9 78 17 140/88 94 11/23/16 10:22 94 21 11/23/16 09:02 97.4 72 18 152/84 96 11/23/16 05:45 97.4 84 20 146/78 94 11/23/16 00:55 98.1 75 20 147/75 95 11/22/16 20:57 97.4 83 20 138/85 94 11/22/16 17:54 95 21 11/23/16 06:59 Intake Total 1435 ml Balance 1435 ml Constitutional Vital Signs Date Time Temp Pulse Resp B/P Pulse Ox O2 Delivery O2 Flow Rate FiO2 11/23/16 16:53 97.8 74 19 127/76 94 11/23/16 11:40 98.9 78 17 140/88 94 11/23/16 10:22 94 21 11/23/16 09:02 97.4 72 18 152/84 96 11/23/16 05:45 97.4 84 20 146/78 94 11/23/16 00:55 98.1 75 20 147/75 95 11/22/16 20:57 97.4 83 20 138/85 94 11/22/16 17:54 95 21 11/23/16 06:59 Intake Total 1435 ml Balance 1435 ml (Daisy Agustin) Review of Systems/Exam Exam Ms. Villanueva is alert and oriented x 3. Follows commands well. Speech fluent. Motor: 5/5 in lower extremities Sensory: intact to light touch in legs b/l Plantars downgoing b/l DTRs: trace in knees and ankles. No ankle clonus (Daisy Agustin) Medications Current Medications Current Medications Medications (Trade) Dose Ordered Sig/Fabby Route PRN Reason Start Time Stop Time Status Last Admin Dose Admin Furosemide (Lasix) 40 mg DAILY PO 11/19/16 09:00 11/23/16 09:14 Potassium Chloride 8 meq 8 meq DAILY PO 11/19/16 09:00 11/23/16 09:14 Sodium Chloride (NS 1000 ml Inj) 1,000 ml @ 100 mls/hr Q10H IV 11/18/16 15:00 11/23/16 15:00 Sodium Chloride (NS Flush) 2 ml UNSCH PRN IV FLUSH FLUSH AFTER USING IV ACCESS 11/18/16 15:00 Sodium Chloride (NS Flush) 2 ml BID IV FLUSH 11/18/16 21:00 11/23/16 09:13 Acetaminophen (Tylenol) 650 mg Q4H PRN PO TEMP > 100.4 11/18/16 15:00 Ondansetron HCl (Zofran Inj) 4 mg Q6H PRN IVP NAUSEA OR VOMITING 11/18/16 15:00 Bisacodyl (Dulcolax Supp) 10 mg DAILY PRN RECTAL CONSTIPATION 11/18/16 15:00 Docusate Sodium (Colace) 100 mg Q12HR PO 11/18/16 15:00 11/23/16 09:15 Naloxone HCl (Narcan Inj) 0.4 mg UNSCH PRN IV SEE LABEL COMMENTS 11/18/16 15:00 Amlodipine Besylate (Norvasc) 5 mg DAILY PO 11/20/16 10:00 11/23/16 09:15 Zolpidem Tartrate (Ambien) 5 mg HS PRN PO INSOMNIA 11/21/16 09:00 Sodium Chloride (NS Flush) See Protocol DAILY IV FLUSH 11/24/16 09:00 Sodium Chloride (NS Flush) See Protocol UNSCH PRN IV FLUSH SEE PROTOCOL TABLE 11/23/16 15:30 Heparin Sodium (Porcine) (Heparin Central Flush) See Protocol DAILY IV FLUSH 11/24/16 09:00 Heparin Sodium (Porcine) (Heparin Central Flush) See Protocol UNSCH PRN IV FLUSH SEE PROTOCOL TABLE 11/23/16 15:30 Sodium Chloride (NS Flush) UNSCH PRN IV FLUSH SEE PROTOCOL TABLE 11/23/16 15:30 (Daisy Agustin) Medical Decision Making MDM Remarks 81 y/o female presents with intractable lumbar pain, L3-4 discitis, stable neuro examination (Daisy Agustin) Plan Plan Remarks clinically improving continue nonoperative mgt, cont antibiotic treatment per ID clear to dc from NRS standpoint (Daisy Agustin) Attending Statement Continue neuro checks in a serial fashion. Respiratory. pulmonary toilette, nasotracheal suction, and breathing treatments with nebulizers. PT and OT Nutrition. Oral diet Endocrine. Monitor serial Acu checks and SSI for tight control ID awaiting cultures. Recommend to start empiric ABX GERD. Protonix for stress ulcer prophylaxis Markel hose and SCD's for DVT prophylaxis The exam, history, and the medical decision-making described in the above note were completed with the assistance of the mid-level provider. I reviewed and agree with the findings presented. I attest that I had a [id number] encounter with the patient on the same day, and personally performed and documented my assessment and findings in the medical record. (Jairon Judge MD) Daisy Agustin November 23, 2016 17:04 Jairon Judge MD November 30, 2016 08:33
[2016-11-24] MEDS ORDERED: SODIUM CHLORIDE 0.9% FLUSH 10 ML FLUSH IV FLUSH SCH (09:00)
== END 2016-11-23 17:34 | disposition home health service (06) | DRG 552 ==
LOC: NEPC 11:59 → NEDA 14:43 → N05B 17:21
PROVIDERS: ADMIT Internal Medicine; ATTEND Internal Medicine
DX: M46.46 Discitis, unspecified, lumbar region (principal); I05.9 Rheumatic mitral valve disease, unspecified; I10 Essential (primary) hypertension; E87.6 Hypokalemia; G89.29 Other chronic pain; M48.06 Spinal stenosis, lumbar region; R32 Unspecified urinary incontinence; Z96.641 Presence of right artificial hip joint; Z96.653 Presence of artificial knee joint, bilateral
CPT/HCPCS: 36569; 62267; 71010; 76937; 77002; 77003; 78306; 78320; 78399; 80048; 80076; 80202; 81001; 82565; 85025; 85610; 85652; 85730; 86140; 87040; 87070; 87077; 87186; 87205; 93306; 99152; 99284; A9503; J2250; J3010; J3370; J7030; J7040; J7050